=== PATIENT | female | born 2000 | race Caucasian/White ===

== ENCOUNTER → 2021-01-19 10:20 | Outpatient (BNVA) | payer OTHER, SELFPAY | PROVIDERS: Visit Provider Nurse Practitioner Family | DX: J06.9 Acute upper respiratory infection, unspecified (principal); Z20.822 Contact with and (suspected) exposure to COVID-19 | CPT/HCPCS: 87635 ==

== ENCOUNTER → 2021-10-24 13:01 | Outpatient (BNVA) | payer BC, SELFPAY | PROVIDERS: Visit Provider Obstetrics & Gynecology | DX: O20.9 Hemorrhage in early pregnancy, unspecified (principal); Z3A.00 Weeks of gestation of pregnancy not specified | CPT/HCPCS: 84702; 85025; 86850; 86900 ==

== ENCOUNTER 2021-10-26 08:51 | Outpatient (CLI) | payer BC, SELFPAY | END 2021-10-26 08:52 | disposition home or self-care (01) | PROVIDERS: Visit Provider Obstetrics & Gynecology | DX: O20.0 Threatened abortion (principal) | CPT/HCPCS: 84702 ==

== ENCOUNTER 2021-10-27 13:29 | Outpatient (CLI) | payer BC, SELFPAY ==
--- NOTE | 2021-10-27 14:15 | US_ITS ---
WS: [id number] EARLY OBSTETRICAL ULTRASOUND (<14 WEEKS). HISTORY: O20.9 - Hemorrhage in early , unspecified COMPARISON: None available. Transabdominal and transvaginal imaging is submitted. On the transabdominal imaging. There is a very small possible gestational sac within the endometrial canal. Diameter is approximately 4 mm which would correspond to a gestation of 5 weeks and 1 day. No pole or cardiac activity or yolk sac identified. There is mild thickening of the endometrium. In the LEFT adnexa there is a hypoechoic mass adjacent and inseparable from the ovary. The hypoechoic mass measures 2.1 x 2.4 cm. Minimal ring of fire vascularity and a small amount of adjacent fluid. T he RIGHT ovary is normal. No free fluid in the cul-de-sac. US/US OB <=14 wk fetus w transvag IMPRESSION: 1. Possible early intrauterine gestational sac. 4 mm fluid collection in the e ndometrium. This may be an early intrauterine gestation or reactive fluid from change in hormone status. No pole or yolk sac. 2. LEFT adnexal hypoechoic mass measures 2.1 x 2.4 cm. Adjacent and inseparabl e from the LEFT ovary. Small amount of adjacent free fluid. Differential does i nclude corpus luteum of and very early ectopic . Notified Lillie Walls MD at 10/27/2021 2:57 PM. At the request of Dr. Walls I discussed these findings with Ms. Whiting. Dr. Walls will order a repeat transvaginal pelvic ultrasound and repeat blood w ork for Saturday, October 30 for reevaluation. I told Ms. Whiting if she has pelvic pain over the weekend she can return to [facility] emergency room.
== END 2021-10-27 13:30 | disposition home or self-care (01) ==
PROVIDERS: Visit Provider Obstetrics & Gynecology
DX: O20.9 Hemorrhage in early pregnancy, unspecified (principal); E27.9 Disorder of adrenal gland, unspecified
CPT/HCPCS: 76801; 76817

== ENCOUNTER 2021-10-29 19:42 | Inpatient (IN) | payer BC, SELFPAY ==
[2021-10-29] VITALS (7 sets, daily range): BP systolic 116–147; BP diastolic 66–111; PULSE 112–127; RESP 16–18; TEMP 36.4–37; O2SAT 99–100; BMI 21.9; BMI 21.2
--- NOTE | 2021-10-29 20:27 | USR_ITS ---
PROCEDURE INFORMATION: Exam: US First Trimester, Transabdominal and US , Transvaginal Exam date and time: 10/29/2021 8:49 PM Age: 21 years old Clinical indication: Lmp or gestational age (in weeks): Lmp 09/29/2021; Other: High hr / fever; ; Additional info: Eval for preg TECHNIQUE: Imaging protocol: Real-time transabdominal obstetrical ultrasound of the maternal pelvis and a first trimester , less than 14 weeks 0 days, with image documentation. Transvaginal imaging was used for better evaluation of the fetus, adnexa, and/or cervix. COMPARISON: No relevant prior studies available. FINDINGS: Gestation: Single intrauterine suspected gestational sac without pole or heart rate, ultrasonographic age not measured given small size, close clinical correlation, serial beta HCG levels and follow-up ultrasound as clinically indicated advised. A pseudogestational sac may also be a consideration given lack of pole. MATERNAL: Uterus: Unremarkable. Cervix: Unremarkable. Right ovary/adnexa: Unremarkable ovary. Left ovary/adnexa: Left ovary 15 mm cyst, potentially corpus luteal in nature. Intraperitoneal space: No intraperitoneal free fluid. US/US OB <= 14 weeks fetus [id number] IMPRESSION: 1. Single intrauterine suspected gestational sac without pole or heart rate, ultrasonographic age not measured given small size, close clinical correlation, serial beta HCG levels and follow-up ultrasound as clinically indicated advised. A pseudogestational sac may also be a consideration given lack of pole. 2. Left ovary 15 mm cyst, potentially corpus luteal in nature.
--- NOTE | 2021-10-29 20:44 | W.ED.GENADLT ---
HPI - General Adult General: Chief complaint: General Medical Stated complaint: heart racing Time Seen by Provider: 10/29/21 20:27 History of Present Illness: Patient is a 21-year-old female who is currently presenting to the emergency room for concerns of sudden onset of fast heart rate. Patient tells me around 6:45 PM she felt lightheaded and noticed that her heart was racing. Patient reports bilateral shoulder pain at that time. Patient denies any chest pain, pleuritic chest pain, cough, runny nose, sore throat, fever/chills. Patient also denies dyspnea or exertional dyspnea. Patient denies any swelling in the legs. Patient tells me that from Saturday, patient went to the women's clinic and had a beta-hCG of 1999. That point time, patient was told to follow-up tomorrow for reassessment to determine whether patient has ectopic . Patient reports 2 episodes of vaginal spotting however denies any significant vaginal bleeding, abdominal pain, nausea/vomiting, diarrhea/melena/hematochezia. Patient has no new vaginal discharge. The spotting happened on 4 days ago and 7 days ago. Denies any urinary complaints. No family history of VTE or hypercoagulability. Onset:6:45pm Duration:ongoing Location:home Severity:moderate Associated symptoms: Deny chest pain, dyspnea, nausea, rash, palpitations or vomiting Review of Systems Const: Denies: fever(s) or chills Eyes: Denies: change in vision ENMT: Denies: mouth pain Card: Denies: chest pain or palpitations Resp: Denies: dyspnea or non-productive cough GI: Denies: abdominal pain, nausea, vomiting or diarrhea : Denies: dysuria Musc: Denies: extremity pain Skin/Breast: Denies: rash or new lesions Neuro: Denies: weakness in extremities Psych: Reports: other (Normal mood) Joshua/Lymph: Denies: easy bruising PFSH ED PFSH: Medical History (Updated 10/29/21 @ 23:15 by Thad De Los Santos MD) of unknown anatomic location Social History (Updated 10/29/21 @ 20:51 by Thad De Los Santos MD) Smoking and tobacco status: never smoked Alcohol intake: never Substance/Drug Use: never Physical Exam Const: COMMON NORMALS: alert HENMT: COMMON NORMALS: atraumatic HEAD & SCALP: atraumatic MOUTH: moist mucous membranes not abnormal Eye: COMMON NORMALS: EOMs intact bilaterally and conjunctivae normal CONJUNCTIVA: Yes conjunctivae normal Neck/C-Spine: COMMON NORMALS: full ROM and supple Resp: COMMON NORMALS: normal respiratory effort and clear to auscultation bilaterally AUSCULTATION: clear to auscultation bilaterally Cardio: RATE: tachycardic GI: COMMON NORMALS: Soft to palpation and non-tender PALPATION: Yes Soft to palpation OTHER: No focal TTP. NO guarding rebound, guarding, rigidity. No CVA tenderness to percussion. Neg Tucker/Neg McBurney's point tenderness, no suprabupic tenderness to palpation. Extremity: COMMON NORMALS: full ROM OTHER: no LE swelling, no gena's sign Neuro: SENSORIUM/ORIENTATION: Yes alert MOTOR EXAM: No Abnormal motor strength present and Other motor observations present (no focal motor deficits) Psych: COMMON NORMALS: speech normal SPEECH: Yes normal speech MOOD & AFFECT: Yes euthymic mood Course Vital Signs: Vital signs: Vital Signs Temperature 98.2 F 10/30/21 09:30 Pulse Rate 98 10/30/21 11:00 Respiratory Rate 18 10/30/21 08:00 Blood Pressure 100/59 10/30/21 10:02 Pulse Oximetry 97 10/30/21 11:00 MDM - General Adult Medical Decision Making 21-year-old female currently x1 presents emergency room with new onset of fast heart since 6:45 PM. Pain on physical exam, patient is hemodynamically stable noted to be mildly tachycardic to the 110s to 120s. Patient does not appear to be dry on exam. No focal abdominal tenderness to palpation. Appears to be stable. Beta-hCG noted to be 8K. US showed gestational sac without definitive confirmation of IUP. No signs of ectopic seen in the left adnexa. There appears to be mild pelvic fluid noted by the customer account technician. I have discussed case emergently with Dr. White given concerns for possible ectopic . It is unclear why there is no visualization of IUP or ectopic given beta of 8000. Dr. White is aware of patient recommend serial H&H and admission to OB unit for close observation for possible ectopic +/- rupture Disposition: transfer to OB floor for observation Lab Data : 10/30/21 06:34 10/29/21 20:44 Radiology Impressions Ultrasound 10/29/21 20:27 IMPRESSION: 1. Single intrauterine suspected gestational sac without pole or heart rate, ultrasonographic age not measured given small size, close clinical correlation, serial beta HCG levels and follow-up ultrasound as clinically indicated advised. A pseudogestational sac may also be a consideration given lack of pole. 2. Left ovary 15 mm cyst, potentially corpus luteal in nature. Obstetrics Ultrasound 10/30/21 08:05 IMPRESSION: 1. No significant change in the fluid collection within the endometrial canal which could be an early gestational sac. Measurements would correspond to a gestation of 5 weeks and 4 days. There is no cardiac activity or pole identified. 2. Again noted is the thick wall mass with central fluid and increased peripheral vascularity in the LEFT adnexa. This is probably a corpus luteal cyst of or could be as ectopic adjacent and inseparable from the ovary. For confirmation continue with serial beta hCG evaluation and possible ultrasound may be necessary. 3. Small amount of simple free fluid in the cul-de-sac. Laboratory Results WBC 12.7 10^3/uL (4.0-10.0) H 10/29/21 20:44 RBC 4.46 10^6/uL (4.1-5.3) 10/29/21 20:44 Hgb 13.9 g/dL (11.5-15.3) 10/29/21 20:44 Hct 40.4 % (37.0-47.0) 10/29/21 20:44 MCV 90.6 fl (81-99) 10/29/21 20:44 MCH 31.2 pg (28.0-34.0) 10/29/21 20:44 MCHC 34.4 g/dL (30.0-36.0) 10/29/21 20:44 RDW 11.1 % (12.1-15.1) L 10/29/21 20:44 Plt Count 239 10^3/cmm (130-400) 10/29/21 20:44 MPV 10.8 fL (7.4-10.4) H 10/29/21 20:44 Neut % (Auto) 82.2 % 10/29/21 20:44 Lymph % (Auto) 13.1 % 10/29/21 20:44 Stewart % (Auto) 3.6 % 10/29/21 20:44 Eos % (Auto) 0.6 % 10/29/21 20:44 Baso % (Auto) 0.3 % 10/29/21 20:44 Neut # (Auto) 10.46 10^3/uL (1.8-7.7) H 10/29/21 20:44 Lymph # (Auto) 1.7 10^3/uL (0.8-4.8) 10/29/21 20:44 Stewart # (Auto) 0.5 10^3/uL (0.2-0.9) 10/29/21 20:44 Eos # (Auto) 0.1 10^3/uL (0.0-0.8) 10/29/21 20:44 Baso # (Auto) 0.0 10^3/uL (0.0-0.1) 10/29/21 20:44 Nucleated RBC % (auto) 0 % 10/29/21 20:44 Nucleated RBCs # 0.0 /100WBC 10/29/21 20:44 Sodium 137 mmol/L (136-145) 10/29/21 20:44 Potassium 3.3 mmol/L (3.5-5.1) L 10/29/21 20:44 Chloride 103 mmol/L (98-107) 10/29/21 20:44 Carbon Dioxide 20 mmol/L (22-29) L 10/29/21 20:44 Anion Gap 17.3 (5-19) 10/29/21 20:44 BUN 6 mg/dL (6-20) 10/29/21 20:44 Creatinine 0.7 mg/dL (0.5-0.9) 10/29/21 20:44 GFR Calculation 104.6 mL/min (90-130) 10/29/21 20:44 Glucose 117 mg/dL (65-115) H 10/29/21 20:44 Calculated Osmolality 283 mOsm/kg (285-295) L 10/29/21 20:44 Calcium 9.6 mg/dL (8.5-10.5) 10/29/21 20:44 Magnesium 1.7 mg/dL (1.7-2.3) 10/29/21 20:44 Total Bilirubin 0.3 mg/dL (0.15-1.2) 10/29/21 20:44 AST 13 U/L (0-32) 10/29/21 20:44 ALT 6 U/L (0-33) 10/29/21 20:44 Alkaline Phosphatase 50 IU/L (35-105) 10/29/21 20:44 Total Protein 6.7 g/dL (6.6-8.7) 10/29/21 20:44 Albumin 4.7 g/dL (3.5-5.2) 10/29/21 20:44 Globulin 2.0 g/dL (1.3-4.6) 10/29/21 20:44 Lipase 14 U/L (13-60) 10/29/21 20:44 TSH 2.02 uIU/mL (0.27-4.20) 10/29/21 20:44 Free T4 1.60 ng/dL (0.82-1.77) 10/29/21 20:44 Ser , Semi-Qnt 8807.00 mIU/mL 10/29/21 20:44 Blood Type O Positive 10/29/21 20:51 Rho(D) Type Positive 10/29/21 20:51 Imaging Data Other Imaging: Radiologist's impression: [place] [address] Ultrasound Report Signed Patient: Mora Whiting Unit #: [id number] : 2000 Age/Sex: 21 / F ADM Date: 10/29/21 Loc: ER Room/Bed: Attending Dr: Ordering Provider/Ordering MD: Thad De Los Santos MD Date of Service: 10/29/21 Procedure(s): US OB <= 14 weeks fetus [id number] Accession Number(s): [id number] Report Number: [id number] PROCEDURE INFORMATION: Exam: US First Trimester, Transabdominal and US , Transvaginal Exam date and time: 10/29/2021 8:49 PM Age: 21 years old Clinical indication: Lmp or gestational age (in weeks): Lmp 09/29/2021; Other: High hr / fever; ; Additional info: Eval for preg TECHNIQUE: Imaging protocol: Real-time transabdominal obstetrical ultrasound of the maternal pelvis and a first trimester , less than 14 weeks 0 days, with image documentation. Transvaginal imaging was used for better evaluation of the fetus, adnexa, and/or cervix. COMPARISON: No relevant prior studies available. FINDINGS: Gestation: Single intrauterine suspected gestational sac without pole or heart rate, ultrasonographic age not measured given small size, close clinical correlation, serial beta HCG levels and follow-up ultrasound as clinically indicated advised. A pseudogestational sac may also be a consideration given lack of pole. MATERNAL: Uterus: Unremarkable. Cervix: Unremarkable. Right ovary/adnexa: Unremarkable ovary. Left ovary/adnexa: Left ovary 15 mm cyst, potentially corpus luteal in nature. Intraperitoneal space: No intraperitoneal free fluid. US/US OB <= 14 weeks fetus [id number] IMPRESSION: 1. Single intrauterine suspected gestational sac without pole or heart rate, ultrasonographic age not measured given small size, close clinical correlation, serial beta HCG levels and follow-up ultrasound as clinically indicated advised. A pseudogestational sac may also be a consideration given lack of pole. 2. Left ovary 15 mm cyst, potentially corpus luteal in nature. ? Dictated By: Gerson Sampson MD Signed By: Gerson Sampson MD Signed Date/Time: 10/29/212211 DD/ 48 Discharge Plan Discharge Patient Disposition: Admitted As Inpatient Admit Provider: Fortuanto White Clinical Impression: Tachycardia, of unknown anatomic location Condition: Stable Coding Level of Care Code ED Investment Recovery Technician for Chg Fwd Exam Comprehensive
[2021-10-29 20:49] LABS: Basophils % 0.3 %; Eosinophils # 0.1 10^3/uL (0.0-0.8); Eosinophils % 0.6 %; Hematocrit 40.4 % (37.0-47.0); Hemoglobin 13.9 g/dL (11.5-15.3); Lymphocytes # 1.7 10^3/uL (0.8-4.8); Lymphocytes % 13.1 %; Mean Corpuscular HGB Conc 34.4 g/dL (30.0-36.0); Mean Corpuscular Hemoglobin 31.2 pg (28.0-34.0); Mean Corpuscular Volume 90.6 fl (81-99); Mean Platelet Volume 10.8 fL (7.4-10.4); Monocytes # 0.5 10^3/uL (0.2-0.9); Monocytes % 3.6 %; Neutrophils # 10.46 10^3/uL (1.8-7.7); Neutrophils % 82.2 %; Nucleated Red Blood Cells % 0 %; Platelet Count 239 10^3/cmm (130-400); Red Blood Count 4.46 10^6/uL (4.1-5.3); Red Cell Distribution Width 11.1 % (12.1-15.1); White Blood Count 12.7 10^3/uL (4.0-10.0)
[2021-10-29 21:17] LABS: Thyroid Stimulating Hormone 2.02 uIU/mL (0.27-4.20)
[2021-10-29 21:18] LABS: Alanine Aminotransferase 6 U/L (0-33); Albumin Level 4.7 g/dL (3.5-5.2); Alkaline Phosphatase 50 IU/L (35-105); Anion Gap 17.3 (5-19); Aspartate Amino Transferase 13 U/L (0-32); Blood Urea Nitrogen 6 mg/dL (6-20); Calcium 9.6 mg/dL (8.5-10.5); Carbon Dioxide 20 mmol/L (22-29); Chloride 103 mmol/L (98-107); Creatinine Clr Calc Pharmacy 103.1506; Glomerular Filtration Rate 104.6 mL/min (90-130); Glucose 117 mg/dL (65-115); Lipase 14 U/L (13-60); Magnesium 1.7 mg/dL (1.7-2.3); Osmolality Calculated 283 mOsm/kg (285-295); Potassium 3.3 mmol/L (3.5-5.1); Sodium 137 mmol/L (136-145); Total Bilirubin 0.3 mg/dL (0.15-1.2); Total Protein 6.7 g/dL (6.6-8.7)
[2021-10-29] MEDS: sodium chloride 0.9% 1,000 ML 999 ML IV ×2 (21:18→21:29)
[2021-10-29 22:55] LABS: Basophils % 0.2 %; Eosinophils % 0.1 %; Lymphocytes # 0.9 10^3/uL (0.8-4.8); Mean Corpuscular HGB Conc 34.2 g/dL (30.0-36.0); Mean Corpuscular Hemoglobin 30.7 pg (28.0-34.0); Mean Corpuscular Volume 89.8 fl (81-99); Mean Platelet Volume 10.8 fL (7.4-10.4); Monocytes # 0.2 10^3/uL (0.2-0.9); Monocytes % 1.7 %; Neutrophils # 11.51 10^3/uL (1.8-7.7); Neutrophils % 90.8 %; Nucleated Red Blood Cells % 0 %; Platelet Count 237 10^3/cmm (130-400); Red Blood Count 4.23 10^6/uL (4.1-5.3); Red Cell Distribution Width 11.2 % (12.1-15.1); White Blood Count 12.7 10^3/uL (4.0-10.0)
[2021-10-29 23:08] LABS: INR 1.05 (0.8-1.2)
[2021-10-30] VITALS (190 sets, daily range): BP systolic 94–125; BP diastolic 49–68; PULSE 63–211; RESP 18; TEMP 36–36.8; O2SAT 84–100
[2021-10-30] MEDS: dextrose 5%-lactated ringers 1,000 ML 125 ML IV (00:38)
[2021-10-30 02:22] LABS: Hematocrit 35.5 % (37.0-47.0)
[2021-10-30 06:48] LABS: Hematocrit 35.5 % (37.0-47.0); Hemoglobin 12.2 g/dL (11.5-15.3)
--- NOTE | 2021-10-30 08:05 | US_ITS ---
WS: [id number] EARLY OBSTETRICAL ULTRASOUND (<14 WEEKS). HISTORY: Follow-up status. Possible ectopic. COMPARISON: 10/29/2021 and 10/27/2021 Transvaginal imaging is submitted. There is a small intrauterine fluid collection which does not cont ain a pole or crown-rump length. Decidual reaction suggests this may be gestational sac. Measur ements correspond to a gestational age of 5 weeks and 4 days. Again noted is thick wall cystic mass in the LEFT adnexa inseparable from the ovary. This thick wall mass measures 2.7 x 1.7 cm. The cystic component measures 1.3 x 1.1 cm and extends over a length of 2 .0 cm. There is increased peripheral vascularity. This is similar in appearance to the prior examinat ion of 10/27/2021. No pole or cardiac activity identified. There is a small amount of free fluid in the pelvis. RIGHT ovary not identified. No RIGHT adnexal mass. US/US OB <=14 wk fetus w transvag IMPRESSION: 1. No significant change in the fluid collection within the endometrial canal which could be an early gestational sac. Measurements would correspond to a ges tation of 5 weeks and 4 days. There is no cardiac activity or pole identi fied. 2. Again noted is the thick wall mass with central fluid and increased periphe ral vascularity in the LEFT adnexa. This is probably a corpus luteal cyst of pr egnancy or could be as ectopic adjacent and inseparable from the ovar y. For confirmation continue with serial beta hCG evaluation and possible ultra sound may be necessary. 3. Small amount of simple free fluid in the cul-de-sac.
--- NOTE | 2021-10-30 09:19 | PC.NURSE ---
US at bedside
[2021-10-30 12:05] LABS: Hematocrit 37.8 % (37.0-47.0); Hemoglobin 13.1 g/dL (11.5-15.3); Mean Corpuscular HGB Conc 34.7 g/dL (30.0-36.0); Mean Corpuscular Hemoglobin 31.6 pg (28.0-34.0); Mean Corpuscular Volume 91.3 fl (81-99); Mean Platelet Volume 10.8 fL (7.4-10.4); Platelet Count 230 10^3/cmm (130-400); Red Blood Count 4.14 10^6/uL (4.1-5.3); Red Cell Distribution Width 11.4 % (12.1-15.1); White Blood Count 7.9 10^3/uL (4.0-10.0)
[2021-10-30 12:25] LABS: HCG, Serum Qual Positive (Negative)
--- NOTE | 2021-10-30 13:20 | P.SS_ITS ---
Short Stay Summary Providers Date of Admit/Discharge: 10/30/21 Attending Provider: Fortunato White MD Chief Complaint: heart racing HPI History of Present Illness Mora Whiting is a 21 year old female with a last menstrual period of 29 September 2021, positive test making her with an estimated gestational age of 4 weeks 3 days today. She referred that she had previously come to the women health care clinic, or a quantitative hCG was ordered and ultrasound was performed. She was given precautions to return to the clinic if any symptoms of pelvic pain or bleeding occurred. She had not yet seen a provider at the clinic. She started with heart palpitations and she was concerned and came to the emergency room. Review of Systems Const: Denies: fever(s) or chills Eyes: Denies: change in vision ENMT: Denies: mouth pain Card: Denies: chest pain or palpitations Resp: Denies: dyspnea or non-productive cough GI: Denies: abdominal pain, nausea, vomiting or diarrhea : Reports: vaginal bleeding (light spotting); Denies: dysuria, urinary frequency, urinary urgency, urinary incontinence, hematuria, genital pruritis, vaginal dryness, vaginal odor, pelvic pain or dyspareunia Musc: Denies: extremity pain Skin/Breast: Denies: rash or new lesions Neuro: Denies: weakness in extremities Psych: Reports: other (Normal mood) Joshua/Lymph: Denies: easy bruising Home Meds/Allergies Home Medications and Allergies Allergies Allergy/AdvReac Type Severity Reaction Status Date / Time No Known Allergies Allergy Verified 10/30/21 00:52 PFSH Acute PFSH: Medical History of unknown anatomic location Social History Smoking and tobacco status: never smoked Alcohol intake: never Substance/Drug Use: never Female Reproductive History: Date of last menstrual period: 09/29/21 : 1 Vitals/I&O/Wt Last Vital Signs Temp 98.2 F 10/30/21 09:30 Pulse 85 10/30/21 13:15 Resp 18 10/30/21 08:00 BP 100/59 10/30/21 10:02 Pulse Ox 98 10/30/21 13:15 Weight last 48 hrs Weight 54.431 kg Weight 54.431 kg Physical Exam Const: COMMON NORMALS: no acute distress, average body habitus and patient oriented x3 GENERAL APPEARANCE: cooperative and well [facility] HENMT: COMMON NORMALS: normocephalic and atraumatic HEAD & SCALP: normocephalic and atraumatic Neck/C-Spine: COMMON NORMALS: full ROM Chest: COMMONS NORMALS: normal inspection of the chest Resp: COMMON NORMALS: normal respiratory effort Cardio: COMMON NORMALS: regular rate and regular rhythm RATE: regular rate RHYTHM: regular rhythm GI: COMMON NORMALS: Soft to palpation; negative for No hepatosplenomegaly present INSPECTION: Yes normal to inspection AUSCULTATION: Yes normoactive bowel sounds PALPATION: Yes Soft to palpation, No Firmness to palpation present (GI), No Tenderness to palpation present (GI), No Guarding due to palpation present (GI), No Rigid due to palpation and No No hepatosplenomegaly present Neuro: COMMON NORMALS: patient oriented x3 Psych: APPEARANCE: Yes well [facility] Hospital Course Hospital Course Mrs. Whiting 21-year-old female visited the emergency room due to heart palpitations. She is currently with a quantitative hCG of 8800, ultrasound only shows a gestational sac with no pole and a left corpus luteum cyst. She is asymptomatic with no pelvic pain no significant vaginal bleeding, admitted for observation and serial hCG and ultrasound. Hemoglobin and hematocrit stable with no significant decrease. of unknown location pole is identified. Patient was instructed to follow-up at the clinic Saturday. SSS Data Data Completed and Pending: Completed Studies During Hospitalization Category Date Time Status US OB <= 14 weeks fetus [id number] Urgen t Ultrasound 10/29/21 20:27 Completed US OB less than 1 4 week fetus w tra nsvag [US OB <=14 wk Ultrasound 10/30/21 08:05 Completed fetus w transvag] Routine Pending at discharge Category Date Time Status HCG Quantitative Stat Lab 10/30/21 12:48 Received Addt'l Data from Hospital Stay: Laboratory Tests 10/29/21 10/29/21 10/30/21 20:44 22:50 02:14 WBC 12.7 H Hgb 13.9 13.0 12.0 Hct 40.4 38.0 35.5 L 10/30/21 10/30/21 06:34 11:40 WBC 7.9 Hgb 12.2 13.1 Hct 35.5 L 37.8 Laboratory Tests 10/29/21 10/30/21 10/30/21 20:44 11:40 11:40 WBC 7.9 Ser , Bakari i-Qnt 8807.00 62093.00 Diagnoses at Discharge Discharge Diagnosis (1) of unknown anatomic location: Details from hospital stay: Mrs. Whiting 21-year-old female with a last menstrual period of September 29, 2021 with an EGA of approximately 4 weeks 3 days. Came to the emergency room referring palpitation. Early ultrasounds: Not identify pole or cardiac activity. Transvaginal ultrasound performed this morning found gestational sac but could not identify pole. Patient is asymptomatic with referring just light brownish spotting. Transabdominal ultrasound performed in the emergency room also did not identify pole of any significant amount of fluid in the pelvic cavity or abdominal cavity. Mrs. Whiting was counseled regarding early in and recommendation of serial ultrasounds and quantitative hCGs. She was advised to follow-up in the clinic this Saturday, to stay on pelvic rest and no strenuous physical activities. She was also advised if she started with any pelvic pain or vaginal bleeding to immediately return to the emergency room. Status: Acute Discharge Plan Discharge Patient Disposition: Home Condition: Stable Prescriptions: New acetaminophen 325 mg capsule 325 mg PO Q4H PRN (Reason: fever or pain) Qty: 60 0RF PNV no.154-iron fumarate-folic 27 mg iron- 1 mg tablet 1 tab PO DAILY 90 Days Qty: 90 3RF Discharge Orders: Discharge Order (Routine); Ordered 10/30/21 Ordered By: Fortunato White Discharge Diet: Usual diet Discharge Activity: Limit activity as instructed Patient Instructions: Opioid Safety Activity Restrictions/Additional Instructions: Please go to [facility]'s 11/01/21 @ 7678 for repeat US and blood work per Dr White's order Attestations Medical Necessity Statement*: In my professional opinion per admitting diagnosis Time Spent in Patient Care*: greater than 30 min Quality Metrics Clinical Quality Measures: [ No reported AMI, CVA or VTE this stay ] Coding Level of Care Code Acute Environmental Health Safety Engineer for Chg Fwd Diagnoses of unknown anatomic location O36.80X0
== END 2021-10-30 15:05 | disposition home or self-care (01) | DRG 833 ==
LOC: ER 22:53 → OBGYN 23:07
PROVIDERS: Admitting Provider Obstetrics & Gynecology; Emergency Provider Emergency Medicine; Visit Provider Obstetrics & Gynecology
DX: O26.891 Other specified pregnancy related conditions, first trimester (principal); O36.80X0 Pregnancy with inconclusive fetal viability, not applicable or unspecified; Z3A.01 Less than 8 weeks gestation of pregnancy; M25.512 Pain in left shoulder; M25.511 Pain in right shoulder; R00.2 Palpitations
CPT/HCPCS: 36415; 76801; 76817; 80053; 83690; 83735; 84439; 84443; 84702; 84703; 85014; 85018; 85025; 85027; 85610; 85730; 86900; 96360; 96361; 99285; J7030

== ENCOUNTER → 2021-11-01 08:36 | Outpatient (BNVA) | payer BC, SELFPAY | PROVIDERS: Visit Provider Obstetrics & Gynecology | DX: O36.80X0 Pregnancy with inconclusive fetal viability, not applicable or unspecified (principal); Z3A.01 Less than 8 weeks gestation of pregnancy | CPT/HCPCS: 76817; 84702 ==

== ENCOUNTER 2021-11-09 17:05 | Emergency (ER) | payer BC, SELFPAY ==
[2021-11-09] VITALS (7 sets, daily range): BP systolic 119–133; BP diastolic 64–78; PULSE 105–136; RESP 16–24; TEMP 36.8; O2SAT 89–100
--- NOTE | 2021-11-09 17:25 | ECG_ITS ---
[facility] Test Date: 2021-11-09 Pat Name: Mora Whiting Department: Room: Gender: Female Bulk Clerk: : 2000 Requested By: Wallace Treviño Order Number: [id number] S[place] MD: Juancho Kwon M.D. Measurements Intervals [place] Rate: 107 P: 69 NE: 127 QRS: 70 QRSD: 90 T: 29 QT: 328 QTc: 438 Interpretive Statements SINUS TACHYCARDIA NONSPECIFIC T-WAVE ABNORMALITY No previous ECG available for comparison Electronically Signed On 11-09-2021 22:53:07 CDT by Juancho Kwon M.D. [email or web address]
--- NOTE | 2021-11-09 17:26 | ED_ITS ---
HPI - General Adult General: Chief complaint: General Medical Stated complaint: HEART PALPITATIONS/ FEELING FLUSHED Time Seen by Provider: 11/09/21 17:24 History of Present Illness: 21-year-old female comes in today with complaints of heart palpitations. Patient notes that her pulse rates been running high. Patient reported that she became concerned when she noticed that it was up to 170 and called EMS Patient is about 6 weeks . Patient appears well. Patient appears no acute distress. Patient reports no chest pain. Associated symptoms: Reports nausea, palpitations and vomiting (Morning sickness); Deny dyspnea or rash Review of Systems General: Reports: 10 or more systems reviewed and unremarkable except in HPI and below Const: Denies: fever(s) Card: Reports: palpitations Resp: Denies: dyspnea GI: Reports: nausea and vomiting (Morning sickness) Musc: Denies: extremity swelling Skin/Breast: Denies: rash Psych: Denies: anxiety Physical Exam Const: COMMON NORMALS: no acute distress HENMT: HEAD & SCALP: normal to inspection Neck/C-Spine: GENERAL: Yes normal visual inspection Resp: COMMON NORMALS: normal respiratory effort and clear to auscultation bilaterally AUSCULTATION: clear to auscultation bilaterally Cardio: COMMON NORMALS: regular rhythm and S1 normal heart sound present PALPATION: normal PMI RATE: tachycardic RHYTHM: regular rhythm HEART SOUNDS: S1 normal heart sound present GI: COMMON NORMALS: Soft to palpation and non-tender PALPATION: Yes Soft to palpation Back/Pelvis: COMMON NORMALS: thoracic and lumbar spine normal to inspection Extremity: COMMON NORMALS: normal to inspection, full ROM, no clubbing, cyanosis or edema, no calf tenderness and no pedal edema Neuro: SHARON COMA SCALE: document GCS findings Sharon coma scale eye opening: Spontaneous [place] coma scale verbal response: Orientated Sharon coma scale motor response: Obey commands [place] coma scale total score: 15 Psych: COMMON NORMALS: cooperative and normal affect Skin: COMMON NORMALS: turgor normal GENERAL SKIN EXAM: turgor normal Course ED course: 1754, reviewed patient with Dr. Fortune, ER attending, he agreed with plan at this time IV fluids and evaluation with labs. Suggest patient may have some mild sinus tachycardia due to dehydration from morning sickness and may have occasional runs of PSVT. Suggest ruling out infection and other abnormalities. 2100, reviewed patient of Dr. Walls whom suggested that we go ahead and start patient on a low-dose of metoprolol, and set her up for Holter monitor and cardiology referral. Reviewed this with patient who agreed to plan. Vital Signs: Vital signs: Vital Signs Temperature 98.3 F 11/09/21 17:24 Pulse Rate 105 H 11/09/21 20:24 Respiratory Rate 18 11/09/21 20:24 Blood Pressure 133/72 11/09/21 20:24 Pulse Oximetry 99 11/09/21 20:24 MDM - General Adult Medical Decision Making Patient comes in today with complaints of palpitations. On exam patient does have a tachycardia ranging between the 110s in the 130s. It was reported patient did have a episode where it jumped up into the 170s to 180s. Patient seems slightly anxious. Patient is in her early at around 6 to 7 weeks. Patient denies any vaginal bleeding or other abnormal vaginal discharge. On exam respirations are even lungs are clear to auscultation. Heart rates regular with tachycardic rhythm in the 110s. Differential diagnosis includes but not limited to PSVT, related tachycardia, anxiety. Laboratory values were unremarkable. Urinalysis was normal. No signs of significant infec tion was noted. Patient was infused with 1500 mL of IV fluids, and given 0.5 of lorazepam with no significant change in pulse rate. I reviewed the patient with Dr. Fortune who recommended I go ahead and discuss it with DIALYSIS REGISTERED NURSE. DIALYSIS REGISTERED NURSE suggested metoprolol tartrate initiation and follow-up with Holter monitor and cardiology. Patient was agreeable to plan and reports that many of her family members has problems with tachycardia and have to be on metoprolol also. Lab Data : 11/09/21 19:15 11/09/21 19:15 Laboratory Results WBC 10.9 10^3/uL (4.0-10.0) H 11/09/21 19:15 RBC 4.31 10^6/uL (4.1-5.3) 11/09/21 19:15 Hgb 13.6 g/dL (11.5-15.3) 11/09/21 19:15 Hct 39.4 % (37.0-47.0) 11/09/21 19:15 MCV 91.4 fl (81-99) 11/09/21 19:15 MCH 31.6 pg (28.0-34.0) 11/09/21 19:15 MCHC 34.5 g/dL (30.0-36.0) 11/09/21 19:15 RDW 11.2 % (12.1-15.1) L 11/09/21 19:15 Plt Count 261 10^3/cmm (130-400) 11/09/21 19:15 MPV 10.8 fL (7.4-10.4) H 11/09/21 19:15 Neut % (Auto) 88.3 % 11/09/21 19:15 Lymph % (Auto) 8.3 % 11/09/21 19:15 [place] % (Auto) 2.7 % 11/09/21 19:15 Eos % (Auto) 0.1 % 11/09/21 19:15 Baso % (Auto) 0.4 % 11/09/21 19:15 Neut # (Auto) 9.63 10^3/uL (1.8-7.7) H 11/09/21 19:15 Lymph # (Auto) 0.9 10^3/uL (0.8-4.8) 11/09/21 19:15 [place] # (Auto) 0.3 10^3/uL (0.2-0.9) 11/09/21 19:15 Eos # (Auto) 0.0 10^3/uL (0.0-0.8) 11/09/21 19:15 Baso # (Auto) 0.0 10^3/uL (0.0-0.1) 11/09/21 19:15 Nucleated RBC % (auto) 0 % 11/09/21 19:15 Nucleated RBCs # 0.0 /100WBC 11/09/21 19:15 Sodium 139 mmol/L (136-145) 11/09/21 19:15 Potassium 3.9 mmol/L (3.5-5.1) 11/09/21 19:15 Chloride 107 mmol/L (98-107) 11/09/21 19:15 Carbon Dioxide 20 mmol/L (22-29) L 11/09/21 19:15 Anion Gap 15.9 (5-19) 11/09/21 19:15 BUN 4 mg/dL (6-20) L 11/09/21 19:15 Creatinine 0.4 mg/dL (0.5-0.9) L 11/09/21 19:15 GFR Calculation 199.6 mL/min (90-130) H 11/09/21 19:15 Glucose 100 mg/dL (65-115) 11/09/21 19:15 Calculated Osmolality 285 mOsm/kg (285-295) 11/09/21 19:15 Calcium 8.6 mg/dL (8.5-10.5) 11/09/21 19:15 Total Bilirubin 0.2 mg/dL (0.15-1.2) 11/09/21 19:15 AST 12 U/L (0-32) 11/09/21 19:15 ALT < 5 U/L (0-33) 11/09/21 19:15 Alkaline Phosphatase 47 IU/L (35-105) 11/09/21 19:15 Troponin T Baseline 6 ng/L (0-10) 11/09/21 19:15 Total Protein 6.5 g/dL (6.6-8.7) L 11/09/21 19:15 Albumin 4.5 g/dL (3.5-5.2) 11/09/21 19:15 Globulin 2.0 g/dL (1.3-4.6) 11/09/21 19:15 TSH 0.52 uIU/mL (0.27-4.20) 11/09/21 19:15 HCG, Qual Positive (Negative) H 11/09/21 19:15 Urine Color Yellow (Yellow) 11/09/21 17:46 Urine Appearance Clear (CLEAR) 11/09/21 17:46 Urine pH 7 (5-7) 11/09/21 17:46 Ur Specific [place] 1.005 (1.005-1.030) 11/09/21 17:46 Urine Protein Neg (Negative) 11/09/21 17:46 Urine Glucose (UA) Norm (Normal) 11/09/21 17:46 Urine Ketones Negative (Negative) 11/09/21 17:46 Urine Blood Neg (Negative) 11/09/21 17:46 Urine Nitrate Negative (Negative) 11/09/21 17:46 Urine Bilirubin Neg (Negative) 11/09/21 17:46 Urine Urobilinogen Norm mg/dL (Negative) 11/09/21 17:46 Ur Leukocyte Esterase Negative (Negative) 11/09/21 17:46 EKG Data EKG 1: EKG interpretation date: 11/09/21 EKG interpretation time: 17:45 Interpretation: EKG shows a sinus tachycardia with a regular rate at 107. No ST elevation or ectopy is noted. No delta wave is noted to suggest [facility]. No prior exam was available for comparison. EKG 2: EKG interpretation date: 11/09/21 EKG interpretation time: 18:56 Interpretation: Sinus tachycardia with a regular rate at 119 bpm. No significant changes from prior exam [address] elevation or ectopy is noted Discharge Plan Discharge Patient Disposition: Home Clinical Impression: Tachycardia Qualifiers: Weeks of gestation: less than 8 weeks Qualified Code(s): Z3A.01 - Less than 8 weeks gestation of Condition: Stable Prescriptions: New metoprolol tartrate 25 mg tablet 12.5 mg PO BID Qty: 30 0RF lorazepam 0.5 mg tablet 0.25 mg PO BID PRN (Reason: anxiety) Qty: 10 0RF Discharge Orders: Discharge ED (Routine); Ordered 11/09/21 Ordered By: Wallace Gerardo Discharge Diet: Usual diet Discharge Activity: Increase activity as tolerated Patient Instructions: Tachycardia (ED) Activity Restrictions/Additional Instructions: Drink plenty of water. Avoid caffeinated beverages. Use medications as directed. Contact Dr. Simpson's office in the morning for follow-up appointment. Case management will contact you regarding cardiology and a time to come in for Holter monitor placement. Return to ER for new concerns. Coding Level of Care Code ED Outdoor Emergency Care Technician for Chg Fwd Exam Comprehensive
[2021-11-09 17:57] LABS: Add Urine Microscopic? NO; Charge for UA Resulting for Rev
[2021-11-09] MEDS: sodium chloride 0.9% 500 ML 999 ML IV (18:01)
[2021-11-09] MEDS: LORazepam 2 mg/mL INJ 1 mL 0.5 MG IVP (18:01)
[2021-11-09 18:08] LABS: Bilirubin Urine Neg (Negative); Blood Urine Neg (Negative); Glucose Urine UA Norm (Normal); Ketones Urine Negative (Negative); Nitrate Urine Negative (Negative); Protein Urine Neg (Negative); Specific Gravity, Urine 1.005 (1.005-1.030); Urine Appearance Clear (CLEAR); Urine Color Yellow (Yellow); pH Urine 7 (5-7)
[2021-11-09 18:09] LABS: Leukocyte Esterase Urine Negative (Negative); Urobilinogen Urine Norm (Negative)
[2021-11-09] MEDS: ondansetron 2 mg/ML SDV 2 mL 4 MG IVP (19:22)
[2021-11-09 19:23] LABS: Basophils % 0.4 %; Eosinophils % 0.1 %; Hematocrit 39.4 % (37.0-47.0); Hemoglobin 13.6 g/dL (11.5-15.3); Lymphocytes # 0.9 10^3/uL (0.8-4.8); Lymphocytes % 8.3 %; Mean Corpuscular HGB Conc 34.5 g/dL (30.0-36.0); Mean Corpuscular Hemoglobin 31.6 pg (28.0-34.0); Mean Corpuscular Volume 91.4 fl (81-99); Mean Platelet Volume 10.8 fL (7.4-10.4); Monocytes # 0.3 10^3/uL (0.2-0.9); Monocytes % 2.7 %; Neutrophils # 9.63 10^3/uL (1.8-7.7); Neutrophils % 88.3 %; Nucleated Red Blood Cells % 0 %; Platelet Count 261 10^3/cmm (130-400); Red Blood Count 4.31 10^6/uL (4.1-5.3); Red Cell Distribution Width 11.2 % (12.1-15.1); White Blood Count 10.9 10^3/uL (4.0-10.0)
--- NOTE | 2021-11-09 19:25 | ECG_ITS ---
[facility] Test Date: 2021-11-09 Pat Name: Mora Whiting Department: Room: Gender: Female Senior Trainer: : 2000 Requested By: Wallace Treviño Order Number: [id number] Sienna MD: Juancho Kwon M.D. Measurements Intervals [place] Rate: 119 P: 61 HI: 112 QRS: 74 QRSD: 75 T: 25 QT: 340 QTc: 480 Interpretive Statements SINUS TACHYCARDIA WITH SHORT HI INTERVAL NONSPECIFIC T-WAVE ABNORMALITY Compared to ECG 11/09/2021 17:38:21 Short HI interval now present T-wave abnormality still present Electronically Signed On 11-09-2021 22:53:36 CDT by Juancho Kwon M.D. [id number]
[2021-11-09 19:31] LABS: HCG, Serum Qual Positive (Negative)
[2021-11-09 19:42] LABS: Troponin(5th) Baseline 6 ng/L (0-10)
[2021-11-09 19:51] LABS: Alanine Aminotransferase < 5 U/L (0-33); Albumin Level 4.5 g/dL (3.5-5.2); Alkaline Phosphatase 47 IU/L (35-105); Anion Gap 15.9 (5-19); Aspartate Amino Transferase 12 U/L (0-32); Blood Urea Nitrogen 4 mg/dL (6-20); Calcium 8.6 mg/dL (8.5-10.5); Carbon Dioxide 20 mmol/L (22-29); Chloride 107 mmol/L (98-107); Glomerular Filtration Rate 199.6 mL/min (90-130); Glucose 100 mg/dL (65-115); Osmolality Calculated 285 mOsm/kg (285-295); Potassium 3.9 mmol/L (3.5-5.1); Sodium 139 mmol/L (136-145); Thyroid Stimulating Hormone 0.52 uIU/mL (0.27-4.20); Total Bilirubin 0.2 mg/dL (0.15-1.2); Total Protein 6.5 g/dL (6.6-8.7)
[2021-11-09] MEDS: metoprolol tartrate 25 mg Tablet 12.5 MG PO (20:16)
--- NOTE | 2021-11-14 09:00 | DCPLANNER ---
Addendum entered by Marilu Lugo 12/10/21 06:43: Patient had a follow up appointment scheduled for 12.04.[address] Kwon at [facility] - patient did attend appointment. Addendum entered by Marilu Lugo 11/18/21 08:13: Patient had a follow up appointment scheduled for 11.16.21 for an event monitor - patient did attend appointment. Patient has a follow up appointment scheduled for Saturday, December 04, 2021 at 11:[address] Kwon. Clinic will call patient with appointment information. Original Note: assistant sales manager had message to schedule a follow up appointment for patient with [facility]. assistant sales manager sent patients information to the front office staff at [facility]. Patients information will be printed and reviewed. Clinic will call patient with appointment information. assistant sales manager also had an outpatient order for a halter monitor that telephonic case manager faxed to [facility], who will call patient with appointment information.
== END 2021-11-09 20:25 | disposition home or self-care (01) ==
PROVIDERS: Emergency Provider Nurse Practitioner Family
DX: O99.891 Other specified diseases and conditions complicating pregnancy (principal); R00.0 Tachycardia, unspecified; Z3A.00 Weeks of gestation of pregnancy not specified
CPT/HCPCS: 80053; 81003; 84443; 84484; 84703; 85025; 93005; 96374; 96375; 99284; J2060; J2405; J7040

== ENCOUNTER 2022-03-26 13:44 | Outpatient (CLI) | payer BC, SELFPAY ==
--- NOTE | 2022-03-26 14:30 | USCV_ITS ---
Mora Whiting Age: 21 Gender: F : 2000 Exam Date: 03/26/2022 14:35 Ordering Phys: Juancho Kwon M.D ([email or web address]) Technologist: Megha Zamudio Exam Location: [facility] Indication: tachycardia, CP BP: 99 / 70 HR: 76 Rhythm: Sinus Technical Quality: Good MEASUREMENTS (Male / Female) Normal Values 2D ECHO LV Diastolic Diameter PLAX 4.5 cm 4.2 - 5.9 / 3.9 - 5.3 cm LV Systolic Diameter PLAX 3.2 cm IVS Diastolic Thickness 0.6 cm 0.6 - 1.0 / 0.6 - 0.9 cm IVS Systolic Thickness 1.0 cm LVPW Diastolic Thickness 0.6 cm 0.6 - 1.0 / 0.6 - 0.9 cm LVPW Systolic Thickness 1.0 cm LVOT Diameter 2.0 cm LV Ejection Fraction 2D Teich 56.8 % LV Ejection Fraction MOD 2C 77.6 % LV Ejection Fraction 2C AL 78.5 % LA Diameter 2.4 cm LA Width 3.2 cm LA Height 3.8 cm RA Width 2.3 cm RA Height 3.7 cm Aorta at Sinotubular Diameter 2.2 cm IVC Diameter 1.0 cm M-MODE MV E Point Septal Separation 0.4 cm DOPPLER AV Peak Velocity 146.0 cm/s LVOT Peak Velocity 101.0 cm/s AV Area Cont Eq vti 2.4 cm squared AV Area Cont Eq pk 2.3 cm squared MV Peak Velocity 100.0 cm/s MV Area PHT 5.0 cm squared Mitral E to A Ratio 1.1 MV E' Velocity 61.0 cm/s Mitral E to MV E' Ratio 9.0 Mitral E to LV E' Lateral Ratio 8.1 Mitral E to LV E' Septal Ratio 10.0 PV Peak Velocity 100.0 cm/s RV Acceleration Time 0.2 s RV Ejection Time 0.3 s RV AcT/ET 0.6 FINDINGS Left Ventricle Left ventricle is normal in size. LV systolic function is normal with EF of 60 to 65%. No regional wall motion abnormalities are seen. Diastolic function is normal Right Ventricle Normal in size and function Right Atrium Normal in size Left Atrium Normal in size Mitral Valve Structurally normal mitral valve. No significant stenosis or regurgitation. Aortic Valve Structurally normal aortic valve. Significant stenosis or regurgitation. Tricuspid Valve Grossly normal Pulmonic Valve Not well visualized Pericardium Normal Aorta Normal in size IVC CONCLUSIONS LV systolic function is normal with EF of 60 to 65%. Diastolic function is normal. No significant valvular heart disease No comparison studies are available Juancho Kwon MD (Electronically Signed) Final Date: 01 April 2022 11:45 S
== END 2022-03-26 13:45 | disposition home or self-care (01) ==
LOC: RAD 13:45
PROVIDERS: PCP Nurse Practitioner Family; Visit Provider Internal Medicine
DX: R07.9 Chest pain, unspecified (principal); R00.0 Tachycardia, unspecified
CPT/HCPCS: 93306

== ENCOUNTER 2022-06-30 17:47 | Emergency (ER) | payer BC, SELFPAY ==
[2022-06-30 17:49] VITALS: BP 118/74; PULSE 102; RESP 17; TEMP 36.2; O2SAT 99; BMI 23.9
--- NOTE | 2022-06-30 17:51 | XRR_ITS ---
PROCEDURE INFORMATION: Exam: XR Chest Exam date and time: 06/30/2022 6:04 PM Age: 22 years old Clinical indication: Shortness of breath; Additional info: SOB TECHNIQUE: Imaging protocol: Radiologic exam of the chest. Views: 1 view. COMPARISON: No relevant prior studies available. FINDINGS: Lungs: Unremarkable. No consolidation. Pleural spaces: Unremarkable. No pleural effusion. No pneumothorax. Heart/Mediastinum: Unremarkable. No cardiomegaly. Bones/joints: Unremarkable. XR/XR chest 1V portable [id number] IMPRESSION: No acute findings.
[2022-06-30 18:08] VITALS: BP 116/77; PULSE 97; RESP 16; O2SAT 97
--- NOTE | 2022-06-30 18:17 | ECG_ITS ---
[facility] Test Date: 2022-06-30 Pat Name: Mora Whiting Department: Room: Gender: Female Rn Critical Care: : 2000 Requested By: Celestine Leger Order Number: [id number] Sienna MD: Den Conway M.D. Measurements Intervals [place] Rate: 76 P: 4 IA: 124 QRS: 41 QRSD: 76 T: 6 QT: 368 QTc: 416 Interpretive Statements SINUS RHYTHM WITH SINUS ARRHYTHMIA Compared to ECG 11/09/2021 18:52:16 Sinus tachycardia no longer present Short IA interval no longer present T-wave abnormality no longer present Electronically Signed On 07-01-2022 20:00:41 LAW OFFICE ASSISTANT by Den Conway M.D. [id number]
--- NOTE | 2022-06-30 18:21 | W.ED.GENADLT ---
Documented by User: UTE Diaz 06/30/22 21:13 HPI - General Adult General: Chief complaint: Vaginal Bleeding Stated complaint: SOB Time Seen by Provider: 06/30/22 18:01 History of Present Illness: Patient is a 21-year-old female that is 5 days status post vaginal delivery. Other than tachycardia, was without complication as was the delivery. Patient is a G1, . She delivered vaginally at full-term. Did require an episiotomy. Patient reports today she feels she is bleeding more but cannot quantify how much more or how frequently. She denies any abdominal pain. We will have the occasional cramping. Patient reports it is made her anxious. She is mildly tachycardic at 110. Denies chest pain but does feel short of breath. Associated symptoms: Deny chest pain, confusion, dyspnea, headache(s), malaise, nausea, rash, palpitations or vomiting Review of Systems General: Reports: 10 or more systems reviewed and unremarkable except in HPI and below Const: Denies: fever(s), chills, change in appetite, change in weight, fatigue or malaise Eyes: Denies: change in vision, eye discomfort, eye discharge or eye redness ENMT: Denies: throat pain, enlarged tonsils, odynophagia, hoarseness, ear or mastoid pain, ear discharge, change in hearing, tinnitus, nasal discharge, nasal congestion, post nasal drip or sinus pain Card: Denies: chest pain, palpitations, irregular heart rhythm, edema, dyspnea on exertion, orthopnea or leg pain with exertion Resp: Denies: dyspnea, productive cough, non-productive cough, wheezing, stridor or chest congestion GI: Denies: abdominal pain, nausea, vomiting, dysphagia, diarrhea, constipation, bloating, GI cramping or hematochezia : Denies: flank pain, difficulty voiding, dysuria, urinary frequency, urinary urgency, urinary hesitancy, oliguria or hematuria Musc: Denies: neck pain, back pain, extremity pain, joint pain, joint swelling, joint redness, joint warmth or muscle weakness Skin/Breast: Denies: rash, pruritus, erythema, photosensitivity or new lesions Neuro: Denies: headache(s), numbness in extremities, weakness in extremities, sensory changes, lack of coordination, difficulty walking, frequent falls, dizziness, confusion, Slurred speech present, difficulty communicating thoughts, seizure-like activity or involuntary movements Endo: Denies: polyuria, polydipsia or tired all the time Joshua/Lymph: Denies: easy bruising or easy bleeding PFSH ED PFSH: Medical History of unknown anatomic location Family History Mother Tachycardia Grandmother Heart attack Social History Smoking and tobacco status: former smoker (vaped) Alcohol intake: never Female Reproductive History: Date of last menstrual period: 09/29/21 Physical Exam Narrative: EXAM NARRATIVE: No acute distress Alert and oriented x3 Afebrile and vital signs stable. Patient is mildly tachycardic at 110 Symmetrical face and facial movements Extraocular movements intact PERRLA 3 mm Nares patent Hearing grossly intact bilateral Respiratory henriquez: No acute distress Nonlabored breathing-no accessory muscle use, no stridor, no wheezing, no retractions Breath sounds clear to auscultation Heart tones normal without additional beats or rubs 2+ pulses upper and lower extremities Mildly tachycardic with a regular rhythm Denies abdominal pain Abdomen is soft and nontender Denies dysuria, denies any urinary symptoms Cervical spine and back nontender. Vaginal exam: Normal external exam. Edema present with episiotomy repair No bleeding from episiotomy site Blood in vaginal canal Course Vital Signs: Vital signs: Vital Signs Temperature 97.2 F L 06/30/22 17:49 Pulse Rate 68 06/30/22 21:32 Respiratory Rate 21 H 06/30/22 21:32 Blood Pressure 111/62 06/30/22 21:32 Pulse Oximetry 96 06/30/22 21:32 Oxygen Delivery Me thod 06/30/22 21:32 MDM - General Adult Medical Decision Making Patient is a 22-year-old female that is G1, Presents for vaginal bleeding, anxious feeling shortness of breath and tachycardia. Differential diagnosis include anticipated vaginal bleeding and anxiety, vaginal hemorrhage, pulmonary embolism. Low likelihood of a pulmonary embolism. Wells criteria: Has a score of 3 points if you consider vaginal delivery in the same category as surgery. This would make her moderate risk. In the emergency department she was placed on cardiac tech. I obtained an EKG, CBC, CMP, D-dimer, PT/INR. IV was started and 1 L fluid given. Naproxen 500 mg p.o. given EKG completed at 1853. Reveals sinus rhythm with sinus arrhythmia. 76 beats a minute and a QTC is 399. No abnormal T wave inversion, ectopy, ST elevation. CBC negative for anemia. Hemoglobin is 12.3 hematocrit 38.4. No significant leukocytosis. Chemistry panel reveals a potassium of 3.3 but otherwise unremarkable. D-dimer is 1.09. CTA ordered after discussion with the patient and her spouse. CT angio completed and reveals no pulmonary embolism but does reveal a small pericardial effusion. Discussed findings with patient and spouse. 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 Patient is going to follow-up with cardiology on Saturday. In addition to the above patient did tell me at the time of final discussion that she was diagnosed this week with mastitis. She is already on Augmentin. Continue her antibiotics as prescribed I reviewed the case with Dr. Fernandez and he is in agreement. Patient to discharge home and return here for new concerning or worsening symptoms Lab Data 06/30/22 18:38 06/30/22 18:38 Radiology Impressions Chest X-Ray 06/30/22 17:51 IMPRESSION: No acute findings. Chest CTA 06/30/22 19:32 IMPRESSION: Small volume pericardial effusion. Otherwise, no acute findings. Laboratory Results WBC 11.5 10^3/uL (4.0-10.0) H 06/30/22 18:38 RBC 4.00 10^6/uL (4.1-5.3) L 06/30/22 18:38 Hgb 12.3 g/dL (11.5-15.3) 06/30/22 18:38 Hct 38.4 % (37.0-47.0) 06/30/22 18:38 MCV 96.0 fl (81-99) 06/30/22 18:38 MCH 30.8 pg (28.0-34.0) 06/30/22 18:38 MCHC 32.0 g/dL (30.0-36.0) 06/30/22 18:38 RDW 13.7 % (12.1-15.1) 06/30/22 18:38 Plt Count 295 10^3/cmm (130-400) 06/30/22 18:38 MPV 10.7 fL (7.4-10.4) H 06/30/22 18:38 Neut % (Auto) 79.1 % 06/30/22 18:38 Lymph % (Auto) 14.1 % 06/30/22 18:38 [place] % (Auto) 5.1 % 06/30/22 18:38 Eos % (Auto) 1.0 % 06/30/22 18:38 Baso % (Auto) 0.3 % 06/30/22 18:38 Neut # (Auto) 9.05 10^3/uL (1.8-7.7) H 06/30/22 18:38 Lymph # (Auto) 1.6 10^3/uL (0.8-4.8) 06/30/22 18:38 [place] # (Auto) 0.6 10^3/uL (0.2-0.9) 06/30/22 18:38 Eos # (Auto) 0.1 10^3/uL (0.0-0.8) 06/30/22 18:38 Baso # (Auto) 0.0 10^3/uL (0.0-0.1) 06/30/22 18:38 Nucleated RBC % (auto) 0 % 06/30/22 18: Nucleated RBCs # 0.0 /100WBC 06/30/22 18:38 PT 13.60 SECONDS (12.1-14.9) 06/30/22 18:38 INR 1.01 (0.8-1.2) 06/30/22 18:38 D-Dimer 1.08 ug/mIFEU (0-0.59) H 06/30/22 18:38 Sodium 139 mmol/L (136-145) 06/30/22 18:38 Potassium 3.3 mmol/L (3.5-5.1) L 06/30/22 18:38 Chloride 103 mmol/L (98-107) 06/30/22 18:38 Carbon Dioxide 25 mmol/L (22-29) 06/30/22 18:38 Anion Gap 14.3 (5-19) 06/30/22 18:38 BUN 8 mg/dL (6-20) 06/30/22 18:38 Creatinine 0.7 mg/dL (0.5-0.9) 06/30/22 18:38 GFR Calculation 103.7 mL/min (90-130) 06/30/22 18:38 Glucose 91 mg/dL (65-115) 06/30/22 18:38 Calculated Osmolality 286 mOsm/kg (285-295) 06/30/22 18:38 Calcium 9.6 mg/dL (8.5-10.5) 06/30/22 18:38 Total Bilirubin 0.2 mg/dL (0.15-1.2) 06/30/22 18:38 AST 14 U/L (0-32) 06/30/22 18:38 ALT 13 U/L (0-33) 06/30/22 18:38 Alkaline Phosphatase 141 U/L (35-105) H 06/30/22 18:38 Total Protein 7.0 g/dL (6.6-8.7) 06/30/22 18:38 Albumin 3.7 g/dL (3.5-5.2) 06/30/22 18:38 Globulin 3.3 g/dL (1.3-4.6) 06/30/22 18:38 Discharge Plan Discharge Patient Disposition: Home Clinical Impression: Tachycardia, Acute pericardial effusion Condition: Stable Prescriptions: No Action acetaminophen 325 mg capsule 325 mg PO Q4H PRN (Reason: fever or pain) Qty: 60 0RF PNV no.154-iron fumarate-folic 27 mg iron- 1 mg tablet 1 tab PO DAILY 90 Days Qty: 90 3RF metoprolol tartrate 25 mg tablet 12.5 mg PO BID Qty: 30 0RF lorazepam 0.5 mg tablet 0.25 mg PO BID PRN (Reason: anxiety) Qty: 10 0RF Discharge Orders: Discharge ED (Routine); Ordered 06/30/22 Ordered By: Celestine Anglin Referrals: Tabby Stern APN [Primary Care Provider] - Discharge Diet: Advance as tolerated Discharge Activity: Resume usual activity Patient Instructions: Pericardial Effusion (ED), Shortness of Breath (ED) Activity Restrictions/Additional Instructions: As discussed please return to the emergency department for new concerning or worsening symptoms. 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 Call for an appointment Your hemoglobin is stable you have not bled too much. Coding Level of Care Code ED Stamp Analyst for Chg Fwd Medical Decision Making Moderate Complexity Documented by User: Carlos Manuel Talavera DO 07/01/22 07:00 HPI - General Adult General: Chief complaint: Vaginal Bleeding Stated complaint: SOB Time Seen by Provider: 06/30/22 18:01 [facility] ED PFSH: Medical History of unknown anatomic location Family History Mother Tachycardia Grandmother Heart attack Social History Smoking and tobacco status: former smoker (vaped) Alcohol intake: never Course Vital Signs: Vital signs: Vital Signs Temperature 97.2 F L 06/30/22 17:49 Pulse Rate 68 06/30/22 21:32 Respiratory Rate 21 H 06/30/22 21:32 Blood Pressure 111/62 06/30/22 21:32 Pulse Oximetry 96 06/30/22 21:32 Oxygen Delivery Me thod 06/30/22 21:32 MDM - General Adult Medical Decision Making Patient is a 22-year-old female that is G1, Presents for vaginal bleeding, anxious feeling shortness of breath and tachycardia. Differential diagnosis include anticipated vaginal bleeding and anxiety, vaginal hemorrhage, pulmonary embolism. Low likelihood of a pulmonary embolism. Wells criteria: Has a score of 3 points if you consider vaginal delivery in the same category as surgery. This would make her moderate risk. In the emergency department she was placed on cardiac tech. I obtained an EKG, CBC, CMP, D-dimer, PT/INR. IV was started and 1 L fluid given. Naproxen 500 mg p.o. given EKG completed at 1853. Reveals sinus rhythm with sinus arrhythmia. 76 beats a minute and a QTC is 399. No abnormal T wave inversion, ectopy, ST elevation. CBC negative for anemia. Hemoglobin is 12.3 hematocrit 38.4. No significant leukocytosis. Chemistry panel reveals a potassium of 3.3 but otherwise unremarkable. D-dimer is 1.09. CTA ordered after discussion with the patient and her spouse. CT angio completed and reveals no pulmonary embolism but does reveal a small pericardial effusion. Discussed findings with patient and spouse. 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 Patient is going to follow-up with cardiology on Saturday. In addition to the above patient did tell me at the time of final discussion that she was diagnosed this week with mastitis. She is already on Augmentin. Continue her antibiotics as prescribed I reviewed the case with Dr. Fernandez and he is in agreement. Patient to discharge home and return here for new concerning or worsening symptoms Chart reviewed and patient discussed with midlevel. Agree with assessment and plan. Lab Data 06/30/22 18:38 06/30/22 18:38 Radiology Impressions Chest X-Ray 06/30/22 17:51 IMPRESSION: No acute findings. Chest CTA 06/30/22 19:32 IMPRESSION: Small volume pericardial effusion. Otherwise, no acute findings. Laboratory Results WBC 11.5 10^3/uL (4.0-10.0) H 06/30/22 18:38 RBC 4.00 10^6/uL (4.1-5.3) L 06/30/22 18:38 Hgb 12.3 g/dL (11.5-15.3) 06/30/22 18:38 Hct 38.4 % (37.0-47.0) 06/30/22 18:38 MCV 96.0 fl (81-99) 06/30/22 18:38 MCH 30.8 pg (28.0-34.0) 06/30/22 18:38 MCHC 32.0 g/dL (30.0-36.0) 06/30/22 18:38 RDW 13.7 % (12.1-15.1) 06/30/22 18:38 Plt Count 295 10^3/cmm (130-400) 06/30/22 18:38 MPV 10.7 fL (7.4-10.4) H 06/30/22 18:38 Neut % (Auto) 79.1 % 06/30/22 18:38 Lymph % (Auto) 14.1 % 06/30/22 18:38 [place] % (Auto) 5.1 % 06/30/22 18:38 Eos % (Auto) 1.0 % 06/30/22 18:38 Baso % (Auto) 0.3 % 06/30/22 18:38 Neut # (Auto) 9.05 10^3/uL (1.8-7.7) H 06/30/22 18:38 Lymph # (Auto) 1.6 10^3/uL (0.8-4.8) 06/30/22 18:38 [place] # (Auto) 0.6 10^3/uL (0.2-0.9) 06/30/22 18:38 Eos # (Auto) 0.1 10^3/uL (0.0-0.8) 06/30/22 18:38 Baso # (Auto) 0.0 10^3/uL (0.0-0.1) 06/30/22 18:38 Nucleated RBC % (auto) 0 % 06/30/22 18:38 Nucleated RBCs # 0.0 /100WBC 06/30/22 18:38 PT 13.60 SECONDS (12.1-14.9) 06/30/22 18:38 INR 1.01 (0.8-1.2) 06/30/22 18:38 D-Dimer 1.08 ug/mIFEU (0-0.59) H 06/30/22 18:38 Sodium 139 mmol/L (136-145) 06/30/22 18:38 Potassium 3.3 mmol/L (3.5-5.1) L 06/30/22 18:38 Chloride 103 mmol/L (98-107) 06/30/22 18:38 Carbon Dioxide 25 mmol/L (22-29) 06/30/22 18:38 Anion Gap 14.3 (5-19) 06/30/22 18:38 BUN 8 mg/dL (6-20) 06/30/22 18:38 Creatinine 0.7 mg/dL (0.5-0.9) 06/30/22 18:38 GFR Calculation 103.7 mL/min (90-130) 06/30/22 18:38 Glucose 91 mg/dL (65-115) 06/30/22 18:38 Calculated Osmolality 286 mOsm/kg (285-295) 06/30/22 18:38 Calcium 9.6 mg/dL (8.5-10.5) 06/30/22 18:38 Total Bilirubin 0.2 mg/dL (0.15-1.2) 06/30/22 18:38 AST 14 U/L (0-32) 06/30/22 18:38 ALT 13 U/L (0-33) 06/30/22 18:38 Alkaline Phosphatase 141 U/L (35-105) H 06/30/22 18:38 Total Protein 7.0 g/dL (6.6-8.7) 06/30/22 18:38 Albumin 3.7 g/dL (3.5-5.2) 06/30/22 18:38 Globulin 3.3 g/dL (1.3-4.6) 06/30/22 18:38 Discharge Plan Discharge Patient Disposition: Home Clinical Impression: Tachycardia, Acute pericardial effusion Condition: Stable Prescriptions: No Action acetaminophen 325 mg capsule 325 mg PO Q4H PRN (Reason: fever or pain) Qty: 60 0RF PNV no.154-iron fumarate-folic 27 mg iron- 1 mg tablet 1 tab PO DAILY 90 Days Qty: 90 3RF metoprolol tartrate 25 mg tablet 12.5 mg PO BID Qty: 30 0RF lorazepam 0.5 mg tablet 0.25 mg PO BID PRN (Reason: anxiety) Qty: 10 0RF Discharge Orders: Discharge ED (Routine); Ordered 06/30/22 Ordered By: Celestine Anglin Referrals: Tabby Stern APN [Primary Care Provider] - Discharge Diet: Advance as tolerated Discharge Activity: Resume usual activity Patient Instructions: Pericardial Effusion (ED), Shortness of Breath (ED) Activity Restrictions/Additional Instructions: As discussed please return to the emergency department for new concerning or worsening symptoms. 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 Call for an appointment Your hemoglobin is stable you have not bled too much. Coding Level of Care Code ED Stamp Analyst for Raphael Fwginette Medical Decision Making Moderate Complexity
[2022-06-30] MEDS: naproxen 500 mg Tablet PO (18:40)
[2022-06-30] MEDS: sodium chloride 0.9% 1,000 ML 999 ML IV (18:40)
[2022-06-30 18:46] VITALS: BP 116/77; PULSE 98; RESP 16; O2SAT 98
[2022-06-30 19:05] LABS: Basophils % 0.3 %; Eosinophils # 0.1 10^3/uL (0.0-0.8); Hematocrit 38.4 % (37.0-47.0); Hemoglobin 12.3 g/dL (11.5-15.3); Lymphocytes # 1.6 10^3/uL (0.8-4.8); Lymphocytes % 14.1 %; Mean Corpuscular Hemoglobin 30.8 pg (28.0-34.0); Mean Platelet Volume 10.7 fL (7.4-10.4); Monocytes # 0.6 10^3/uL (0.2-0.9); Monocytes % 5.1 %; Neutrophils # 9.05 10^3/uL (1.8-7.7); Neutrophils % 79.1 %; Nucleated Red Blood Cells % 0 %; Platelet Count 295 10^3/cmm (130-400); Red Cell Distribution Width 13.7 % (12.1-15.1); White Blood Count 11.5 10^3/uL (4.0-10.0)
[2022-06-30 19:22] LABS: INR 1.01 (0.8-1.2)
[2022-06-30 19:25] LABS: D Dimer 1.08 ug/mIFEU (0-0.59)
[2022-06-30 19:29] LABS: Alanine Aminotransferase 13 U/L (0-33); Albumin Level 3.7 g/dL (3.5-5.2); Alkaline Phosphatase 141 U/L (35-105); Anion Gap 14.3 (5-19); Aspartate Amino Transferase 14 U/L (0-32); Blood Urea Nitrogen 8 mg/dL (6-20); Calcium 9.6 mg/dL (8.5-10.5); Carbon Dioxide 25 mmol/L (22-29); Chloride 103 mmol/L (98-107); Globulin 3.3 g/dL (1.3-4.6); Glomerular Filtration Rate 103.7 mL/min (90-130); Glucose 91 mg/dL (65-115); Osmolality Calculated 286 mOsm/kg (285-295); Potassium 3.3 mmol/L (3.5-5.1); Sodium 139 mmol/L (136-145); Total Bilirubin 0.2 mg/dL (0.15-1.2)
--- NOTE | 2022-06-30 19:32 | CTR_ITS ---
PROCEDURE INFORMATION: Exam: CTA Chest With Contrast Exam date and time: 06/30/2022 8:19 PM Age: 22 years old Clinical indication: Shortness of breath and other: Tachycardia, elevated d-dimer, post x5 days; Additional info: Tachycardia, SOB, anxious, post TECHNIQUE: Imaging protocol: Computed tomographic angiography of the chest with contrast. 3D rendering (Not supervised by radiologist): MIP and/or 3D reconstructed images were created by the technologist. Radiation optimization: All CT scans at this facility use at least one of these dose optimization techniques: automated exposure control; mA and/or kV adjustment per patient size (includes targeted exams where dose is matched to clinical indication); or iterative reconstruction. Contrast material: OMNI 350; Contrast volume: 100 ml; Contrast route: INTRAVENOUS (IV); COMPARISON: CR (CHEST, ) 06/30/2022 6:04 PM RADIATION DOSE METRICS: Total DLP (mGy-cm): 210.28 FINDINGS: Pulmonary arteries: Normal. No pulmonary emboli. Aorta: Unremarkable. No aortic aneurysm. No aortic dissection. Lungs: Unremarkable. No consolidation. No masses. Pleural spaces: Unremarkable. No pneumothorax. No pleural effusion. Heart: No cardiomegaly. Small volume pericardial effusion. Lymph nodes: Unremarkable. No enlarged lymph nodes. Bones/joints: Unremarkable. No acute fracture. Soft tissues: Unremarkable. CT/CT angio chest PE protcl [id number] IMPRESSION: Small volume pericardial effusion. Otherwise, no acute findings.
[2022-06-30] MEDS: iohexol 350 mg/mL 500 mL Btl (per mL) IV (20:07)
[2022-06-30 20:43] VITALS: BP 137/84; PULSE 79; RESP 22; O2SAT 98
[2022-06-30 21:32] VITALS: BP 111/62; PULSE 68; RESP 21; O2SAT 96
== END 2022-06-30 21:44 | disposition home or self-care (01) ==
PROVIDERS: Emergency Medicine; Emergency Provider Nurse Practitioner; PCP Nurse Practitioner Family
DX: O99.43 Diseases of the circulatory system complicating the puerperium (principal); I30.9 Acute pericarditis, unspecified; Z87.891 Personal history of nicotine dependence
CPT/HCPCS: 36415; 71045; 71275; 80053; 85025; 85378; 85610; 93005; 96360; 99285; J7030; Q9967

== ENCOUNTER 2022-07-25 14:06 | Emergency (ER) | payer BC, SELFPAY ==
[2022-07-25 14:09] VITALS: BP 122/92; PULSE 82; RESP 16; TEMP 36.6; O2SAT 94
--- NOTE | 2022-07-25 15:17 | ED_ITS ---
Documented by User: DARRYL García 07/26/22 07:15 HPI - Female Genitourinary General: Chief complaint: Abdominal Pain Stated complaint: right flank pain Time Seen by Provider: 07/25/22 14:44 History of Present Illness: Patient is a 22-year-old female comes to the ED with UTI symptoms. Patient says a little over a week ago she started developing symptoms of dysuria. She went and saw her PCP and they put her on Augmentin. She has been taking Augmentin for almost a week now and symptoms have not improved. She still having dysuria. Yesterday she started developing right lower back pain that radiates into the right lower quadrant of abdomen. He ra nelia the pain a 9 out of 10. Denies any fever, nausea/vomiting. Associated symptoms: Deny abdominal pain, headache(s) or nausea Date of Last Menstrual Period: 09/29/21 Review of Systems Const: Denies: fever(s), chills or fatigue Eyes: Denies: change in vision or eye discomfort ENMT: Denies: throat pain, odynophagia, nasal discharge or nasal congestion Card: Denies: chest pain, palpitations, edema, swelling of feet/ankles, dyspnea on exertion or orthopnea Resp: Denies: dyspnea, productive cough or non-productive cough GI: Denies: abdominal pain, nausea, vomiting, diarrhea, constipation or hematochezia : Reports: flank pain and dysuria; Denies: hematuria Musc: Denies: neck pain, back pain or extremity swelling Skin/Breast: Denies: rash or new lesions Neuro: Denies: headache(s), numbness in extremities or weakness in extremities PFSH ED 2 PFSH: Medical History of unknown anatomic location Family History Mother Tachycardia Grandmother Heart attack Social History Smoking and tobacco status: former smoker (vaped) Alcohol intake: never Female Reproductive History: Date of last menstrual period: 09/29/21 Physical Exam Const: COMMON NORMALS: patient oriented x3 and alert GENERAL APPEARANCE: cooperative and comfortable HENMT: COMMON NORMALS: normocephalic HEAD & SCALP: normocephalic MOUTH: Normal oral and palatal mucosa present THROAT: posterior oropharynx normal and uvula midline Neck/C-Spine: COMMON NORMALS: supple GENERAL: Yes normal visual inspection Resp: COMMON NORMALS: normal respiratory effort, No retractions, No use of accessory muscles and clear to auscultation bilaterally AUSCULTATION: clear to auscultation bilaterally Cardio: COMMON NORMALS: regular rate, regular rhythm, S1 normal heart sound present, S2 normal heart sound present, No gallops present (Cardio), No clicks present (Cardio), No murmurs present (Cardio) and Peripheral pulses 2+ throughout RATE: regular rate RHYTHM: regular rhythm HEART SOUNDS: S1 normal heart sound present and S2 normal heart sound present PERIPHERAL PULSES: Peripheral pulses 2+ throughout GI: COMMON NORMALS: Normal to inspection, nondistended, normoactive bowel sounds present, Soft to palpation, non-tender and no masses PALPATION: Yes Soft to palpation : COMMON NORMALS: Yes no CVA tenderness BLADDER/KIDNEY EXAM: Yes no CVA tenderness Back/Pelvis: COMMON NORMALS: no CVA tenderness Extremity: COMMON NORMALS: normal to inspection Neuro: COMMON NORMALS: patient oriented x3 SENSORIUM/ORIENTATION: Yes alert GAIT: Yes Normal gait present Skin: GENERAL SKIN EXAM: dry skin Course Vital Signs: Vital signs: Vital Signs Temperature 97.8 F 07/25/22 14:09 Pulse Rate 88 07/25/22 19:05 Respiratory Rate 16 07/25/22 19:05 Blood Pressure 123/57 07/25/22 19:05 Pulse Oximetry 100 07/25/22 19:05 Oxygen Delivery Me thod 07/25/22 18:14 MDM - Female Lab Data I reviewed the patient's lab results. 07/25/22 15:40 07/25/22 15:40 Radiology Impressions Abdomen/Pelvis CT 07/25/22 16:11 IMPRESSION: 1. Mild to moderate right-sided hydroureteronephrosis and perinephric/periureteral stranding, secondary to 2 adjacent 3 mm distal right ureteral calculi. 2. Additional findings, as above. COMMENTS: Consistent with the [place]'s Incidental Findings Committee white paper (J Am Kamini Radiol 2018): Any incidental renal lesion less than 1 cm or classified as too small to characterize, or any incidental cystic renal lesion characterized as simple-appearing, is likely benign. No follow-up imaging is recommended for these lesions per consensus recommendations based on imaging criteria. Laboratory Results WBC 10.4 10^3/uL (4.0-10.0) H 07/25/22 15:40 RBC 4.69 10^6/uL (4.1-5.3) 07/25/22 15:40 Hgb 14.2 g/dL (11.5-15.3) 07/25/22 15:40 Hct 43.4 % (37.0-47.0) 07/25/22 15:40 MCV 92.5 fl (81-99) 07/25/22 15:40 MCH 30.3 pg (28.0-34.0) 07/25/22 15:40 MCHC 32.7 g/dL (30.0-36.0) 07/25/22 15:40 RDW 11.8 % (12.1-15.1) L 07/25/22 15:40 Plt Count 249 10^3/cmm (130-400) 07/25/22 15:40 MPV 10.8 fL (7.4-10.4) H 07/25/22 15:40 Neut % (Auto) 84.3 % 07/25/22 15:40 Lymph % (Auto) 10.6 % 07/25/22 15:40 Jess[place] % (Auto) 3.9 % 07/25/22 15:40 Eos % (Auto) 0.6 % 07/25/22 15:40 Baso % (Auto) 0.3 % 07/25/22 15:40 Neut # (Auto) 8.79 10^3/uL (1.8-7.7) H 07/25/22 15:40 Lymph # (Auto) 1.1 10^3/uL (0.8-4.8) 07/25/22 15:40 [place] # (Auto) 0.4 10^3/uL (0.2-0.9) 07/25/22 15:40 Eos # (Auto) 0.1 10^3/uL (0.0-0.8) 07/25/22 15:40 Baso # (Auto) 0.0 10^3/uL (0.0-0.1) 07/25/22 15:40 Nucleated RBC % (auto) 0 % 02/01/23 15:40 Nucleated RBCs # 0.0 /100WBC 07/25/22 15:40 Sodium 138 mmol/L (136-145) 07/25/22 15:40 Potassium 3.8 mmol/L (3.5-5.1) 07/25/22 15:40 Chloride 100 mmol/L (98-107) 07/25/22 15:40 Carbon Dioxide 25 mmol/L (22-29) 07/25/22 15:40 Anion Gap 16.8 (5-19) 07/25/22 15:40 BUN 9 mg/dL (6-20) 07/25/22 15:40 Creatinine 0.7 mg/dL (0.5-0.9) 07/25/22 15:40 GFR Calculation 103.7 mL/min (90-130) 07/25/22 15:40 Glucose 89 mg/dL (65-115) 07/25/22 15:40 Calculated Osmolality 284 mOsm/kg (285-295) L 07/25/22 15:40 Calcium 9.8 mg/dL (8.5-10.5) 07/25/22 15:40 Total Bilirubin 0.5 mg/dL (0.15-1.2) 07/25/22 15:40 AST 14 U/L (0-32) 07/25/22 15:40 ALT 7 U/L (0-33) 07/25/22 15:40 Alkaline Phosphatase 82 U/L (35-105) 07/25/22 15:40 Total Protein 7.3 g/dL (6.6-8.7) 07/25/22 15:40 Albumin 4.6 g/dL (3.5-5.2) 07/25/22 15:40 Globulin 2.7 g/dL (1.3-4.6) 07/25/22 15:40 Lipase 14 U/L (13-60) 07/25/22 15:40 HCG, Qual Negative (Negative) 07/25/22 15:40 Urine Color Yellow (Yellow) 07/25/22 18:25 Urine Appearance Clear (CLEAR) 07/25/22 18:25 Urine pH 5 (5-7) 07/25/22 18:25 Ur Specific [place] 1.010 (1.005-1.030) 07/25/22 18:25 Urine Protein Neg (Negative) 07/25/22 18:25 Urine Glucose (UA) Norm (Normal) 07/25/22 18:25 Urine Ketones 2+ (Negative) H 07/25/22 18:25 Urine Blood 2+ (Negative) H 07/25/22 18:25 Urine Nitrate Negative (Negative) 07/25/22 18:25 Urine Bilirubin Neg (Negative) 07/25/22 18:25 Urine Urobilinogen Norm mg/dL (Negative) 07/25/22 18:25 Ur Leukocyte Esterase Trace (Negative) H 07/25/22 18:25 Ur Microscopic Indic Cancelled 07/25/22 18:25 Urine RBC 0-4 /hpf (0-2) H 07/25/22 18:25 Urine WBC 0-4 /hpf (0-5) H 07/25/22 18:25 Ur Squamous Epith Cells 0-4 /hpf (0-5) H 07/25/22 18:25 Amorphous Sediment Not Reportable 07/25/22 18:25 Urine Bacteria Trace /hpf (NONE) 07/25/22 18:25 Urine Mucus 1+ /hpf 07/25/22 18:25 Discharge Plan Discharge Patient Disposition: Home Clinical Impression: Calculus of distal right ureter Condition: Stable Prescriptions: New hydrocodone-acetaminophen 5-325 mg tablet 1 tab PO Q6H PRN (Reason: pain) Qty: 14 0RF Flomax 0.4 mg capsule 0.4 mg PO DAILY Qty: 10 0RF ondansetron 4 mg tablet,disintegrating 4 mg PO Q8H PRN (Reason: nausea and vomiting) Qty: 14 0RF Continued amoxicillin-pot clavulanate 875-125 mg tablet 1 tab PO Q12H No Action acetaminophen 325 mg capsule 325 mg PO Q4H PRN (Reason: fever or pain) Qty: 60 0RF PNV no.154-iron fumarate-folic 27 mg iron- 1 mg tablet 1 tab PO DAILY 90 Days Qty: 90 3RF Probiotic 5 billion cell Capsule, Sprinkle 1 cap PO DAILY Discharge Orders: Discharge ED (Routine); Ordered 07/25/22 Ordered By: Nohemy Miranda Referrals: Stern,Tabby, HARNESS TIER [Primary Care Provider] - Patient Instructions: Ureteral Stones (ED), Opioid Safety, Pain Management Activity Restrictions/Additional Instructions: As we discussed continue your antibiotics. Begin straining your urine and bring any stones with you to your follow-up urology appointment. As we discussed you need to return to the emergency department for the onset of any fevers of 100.4 or greater, vomiting, inability to hold down your antibiotics, worsening or uncontrollable pain, or any other concerns you may have. I hope you begin to feel better soon. Sign Out Sign Out Data: Patient Sign Out occurred on 07/25/22 at 17:10. Patient's care was discussed, and care was transferred from to DARRYL Acosta. Coding Level of Care Code ED Cardiovascular Technologist for Chg Fwd Exam Comprehensive Documented by User: DARRYL Acosta 07/25/22 20:13 HPI - Female Genitourinary General: Chief complaint: Abdominal Pain Stated complaint: right flank pain Time Seen by Provider: 07/25/22 14:44 [facility] ED PFSH: Medical History of unknown anatomic location Family History Mother Tachycardia Grandmother Heart attack Social History Smoking and tobacco status: former smoker (vaped) Alcohol intake: never Course Vital Signs: Vital signs: Vital Signs Temperature 97.8 F 07/25/22 14:09 Pulse Rate 88 07/25/22 19:05 Respiratory Rate 16 07/25/22 19:05 Blood Pressure 123/57 07/25/22 19:05 Pulse Oximetry 100 07/25/22 19:05 Oxygen Delivery Me thod 07/25/22 18:14 MDM - Female Medical Decision Making Patient is a 22-year-old female here for right-sided flank pain. She is reportedly diagnosed with a UTI last week. Unfortunately urine analysis/culture results are unavailable. She has been on Augmentin. CT scan here shows to 3 mm distal ureter stones. Patient has not been running fevers. No vomiting. Her vital signs are completely normal. WBC is 10.4. Her initial UA was grossly contaminated with 15-25 epithelial cells. Repeat urinalysis was obtained and is not overly suspicious for infection at this time. We will go ahead and culture f or confirmation. Case discussed with Dr. De Leon who felt patient could safely be discharged home with close urology follow-up. Case management referral has been placed for this. We will have her continue her Augmentin. Very strict return to ED precautions were given to which patient voiced understanding. Lab Data 07/25/22 15:40 07/25/22 15:40 Radiology Impressions Abdomen/Pelvis CT 07/25/22 16:11 IMPRESSION: 1. Mild to moderate right-sided hydroureteronephrosis and perinephric/periureteral stranding, secondary to 2 adjacent 3 mm distal right ureteral calculi. 2. Additional findings, as above. COMMENTS: Consistent with the [place] [employer]'s Incidental Findings Committee white paper (J Am Kamini Radiol 2018): Any incidental renal lesion less than 1 cm or classified as too small to characterize, or any incidental cystic renal lesion characterized as simple-appearing, is likely benign. No follow-up imaging is recommended for these lesions per consensus recommendations based on imaging criteria. Laboratory Results WBC 10.4 10^3/uL (4.0-10.0) H 07/25/22 15:40 RBC 4.69 10^6/uL (4.1-5.3) 07/25/22 15:40 Hgb 14.2 g/dL (11.5-15.3) 07/25/22 15:40 Hct 43.4 % (37.0-47.0) 07/25/22 15:40 MCV 92.5 fl (81-99) 07/25/22 15:40 MCH 30.3 pg (28.0-34.0) 07/25/22 15:40 MCHC 32.7 g/dL (30.0-36.0) 07/25/22 15:40 RDW 11.8 % (12.1-15.1) L 07/25/22 15:40 Plt Count 249 10^3/cmm (130-400) 07/25/22 15:40 MPV 10.8 fL (7.4-10.4) H 07/25/22 15:40 Neut % (Auto) 84.3 % 07/25/22 15:40 Lymph % (Auto) 10.6 % 07/25/22 15:40 Jess[place] % (Auto) 3.9 % 07/25/22 15:40 Eos % (Auto) 0.6 % 07/25/22 15:40 Baso % (Auto) 0.3 % 07/25/22 15:40 Neut # (Auto) 8.79 10^3/uL (1.8-7.7) H 07/25/22 15:40 Lymph # (Auto) 1.1 10^3/uL (0.8-4.8) 07/25/22 15:40 Jess[place] # (Auto) 0.4 10^3/uL (0.2-0.9) 07/25/22 15:40 Eos # (Auto) 0.1 10^3/uL (0.0-0.8) 07/25/22 15:40 Baso # (Auto) 0.0 10^3/uL (0.0-0.1) 07/25/22 15:40 Nucleated RBC % (auto) 0 % 07/25/22 15:40 Nucleated RBCs # 0.0 /100WBC 07/25/22 15:40 Sodium 138 mmol/L (136-145) 07/25/22 15:40 Potassium 3.8 mmol/L (3.5-5.1) 07/25/22 15:40 Chloride 100 mmol/L (98-107) 07/25/22 15:40 Carbon Dioxide 25 mmol/L (22-29) 07/25/22 15:40 Anion Gap 16.8 (5-19) 07/25/22 15:40 BUN 9 mg/dL (6-20) 07/25/22 15:40 Creatinine 0.7 mg/dL (0.5-0.9) 07/25/22 15:40 GFR Calculation 103.7 mL/min (90-130) 07/25/22 15:40 Glucose 89 mg/dL (65-115) 07/25/22 15:40 Calculated Osmolality 284 mOsm/kg (285-295) L 07/25/22 15:40 Calcium 9.8 mg/dL (8.5-10.5) 07/25/22 15:40 Total Bilirubin 0.5 mg/dL (0.15-1.2) 07/25/22 15:40 AST 14 U/L (0-32) 07/25/22 15:40 ALT 7 U/L (0-33) 07/25/22 15:40 Alkaline Phosphatase 82 U/L (35-105) 07/25/22 15:40 Total Protein 7.3 g/dL (6.6-8.7) 07/25/22 15:40 Albumin 4.6 g/dL (3.5-5.2) 07/25/22 15:40 Globulin 2.7 g/dL (1.3-4.6) 07/25/22 15:40 Lipase 14 U/L (13-60) 07/25/22 15:40 HCG, Qual Negative (Negative) 07/25/22 15:40 Urine Color Yellow (Yellow) 07/25/22 18:25 Urine Appearance Clear (CLEAR) 07/25/22 18:25 Urine pH 5 (5-7) 07/25/22 18:25 Ur Specific [place] 1.010 (1.005-1.030) 07/25/22 18:25 Urine Protein Neg (Negative) 07/25/22 18:25 Urine Glucose (UA) Norm (Normal) 07/25/22 18:25 Urine Ketones 2+ (Negative) H 07/25/22 18:25 Urine Blood 2+ (Negative) H 07/25/22 18:25 Urine Nitrate Negative (Negative) 07/25/22 18:25 Urine Bilirubin Neg (Negative) 07/25/22 18:25 Urine Urobilinogen Norm mg/dL (Negative) 07/25/22 18:25 Ur Leukocyte Esterase Trace (Negative) H 07/25/22 18:25 Ur Microscopic Indic Cancelled 07/25/22 18:25 Urine RBC 0-4 /hpf (0-2) H 07/25/22 18:25 Urine WBC 0-4 /hpf (0-5) H 07/25/22 18:25 Ur Squamous Epith Cells 0-4 /hpf (0-5) H 07/25/22 18:25 Amorphous Sediment Not Reportable 07/25/22 18:25 Urine Bacteria Trace /hpf (NONE) 07/25/22 18:25 Urine Mucus 1+ /hpf 07/25/22 18:25 Discharge Plan Discharge Patient Disposition: Home Clinical Impression: Calculus of distal right ureter Condition: Stable Prescriptions: New hydrocodone-acetaminophen 5-325 mg tablet 1 tab PO Q6H PRN (Reason: pain) Qty: 14 0RF Flomax 0.4 mg capsule 0.4 mg PO DAILY Qty: 10 0RF ondansetron 4 mg tablet,disintegrating 4 mg PO Q8H PRN (Reason: nausea and vomiting) Qty: 14 0RF Continued amoxicillin-pot clavulanate 875-125 mg tablet 1 tab PO Q12H No Action acetaminophen 325 mg capsule 325 mg PO Q4H PRN (Reason: fever or pain) Qty: 60 0RF PNV no.154-iron fumarate-folic 27 mg iron- 1 mg tablet 1 tab PO DAILY 90 Days Qty: 90 3RF Probiotic 5 billion cell Capsule, Sprinkle 1 cap PO DAILY Discharge Orders: Discharge ED (Routine); Ordered 07/25/22 Ordered By: Nohemy Miranda Referrals: Tabby Stern APN [Primary Care Provider] - Patient Instructions: Ureteral Stones (ED), Opioid Safety, Pain Management Activity Restrictions/Additional Instructions: As we discussed continue your antibiotics. Begin straining your urine and bring any stones with you to your follow-up urology appointment. As we discussed you need to return to the emergency department for the onset of any fevers of 100.4 or greater, vomiting, inability to hold down your antibiotics, worsening or uncontrollable pain, or any other concerns you may have. I hope you begin to feel better soon. Sign Out Sign Out Data: Patient Sign Out occurred on 07/25/22 at 17:10. Patient's care was discussed, and care was transferred from to DARRYL Acosta. Coding Level of Care Code ED Cardiovascular Technologist for Raphael Fwginette Exam Comprehensive
[2022-07-25] MEDS: HYDROcodone-acetaminophen 5-325 mg Tablet 1 TAB PO (15:24)
[2022-07-25 15:26] VITALS: BP 112/70; PULSE 63; O2SAT 100
[2022-07-25 15:47] LABS: Basophils % 0.3 %; Eosinophils # 0.1 10^3/uL (0.0-0.8); Eosinophils % 0.6 %; Hematocrit 43.4 % (37.0-47.0); Hemoglobin 14.2 g/dL (11.5-15.3); Lymphocytes # 1.1 10^3/uL (0.8-4.8); Lymphocytes % 10.6 %; Mean Corpuscular HGB Conc 32.7 g/dL (30.0-36.0); Mean Corpuscular Hemoglobin 30.3 pg (28.0-34.0); Mean Corpuscular Volume 92.5 fl (81-99); Mean Platelet Volume 10.8 fL (7.4-10.4); Monocytes # 0.4 10^3/uL (0.2-0.9); Monocytes % 3.9 %; Neutrophils # 8.79 10^3/uL (1.8-7.7); Neutrophils % 84.3 %; Nucleated Red Blood Cells % 0 %; Platelet Count 249 10^3/cmm (130-400); Red Blood Count 4.69 10^6/uL (4.1-5.3); Red Cell Distribution Width 11.8 % (12.1-15.1); White Blood Count 10.4 10^3/uL (4.0-10.0)
[2022-07-25 15:59] LABS: Add Urine Culture? No; Add Urine Microscopic? YES; Bacteria Urine TRACE /hpf; Bilirubin Urine Neg (Negative); Blood Urine 2+ (Negative); Glucose Urine UA Norm (Normal); Ketones Urine 2+ (Negative); Leukocyte Esterase Urine Trace (Negative); Nitrate Urine Negative (Negative); Protein Urine Neg (Negative); RBC Urine 0-4 /hpf (0-2); Specific Gravity, Urine 1.015 (1.005-1.030); Squamous Epithelial Cell Urine 15-25 /hpf (0-5); Urine Appearance Hazy (CLEAR); Urine Color Yellow (Yellow); Urobilinogen Urine Neg (Negative); WBC Urine 0-4 /hpf (0-5); pH Urine 5 (5-7)
[2022-07-25 15:59] LABS: HCG, Serum Qual Negative (Negative)
[2022-07-25 16:06] LABS: Alanine Aminotransferase 7 U/L (0-33); Albumin Level 4.6 g/dL (3.5-5.2); Alkaline Phosphatase 82 U/L (35-105); Anion Gap 16.8 (5-19); Aspartate Amino Transferase 14 U/L (0-32); Blood Urea Nitrogen 9 mg/dL (6-20); Calcium 9.8 mg/dL (8.5-10.5); Carbon Dioxide 25 mmol/L (22-29); Chloride 100 mmol/L (98-107); Globulin 2.7 g/dL (1.3-4.6); Glomerular Filtration Rate 103.7 mL/min (90-130); Glucose 89 mg/dL (65-115); Lipase 14 U/L (13-60); Osmolality Calculated 284 mOsm/kg (285-295); Potassium 3.8 mmol/L (3.5-5.1); Sodium 138 mmol/L (136-145); Total Bilirubin 0.5 mg/dL (0.15-1.2); Total Protein 7.3 g/dL (6.6-8.7)
--- NOTE | 2022-07-25 16:11 | CTR_ITS ---
PROCEDURE INFORMATION: Exam: CT Abdomen And Pelvis Without Contrast Exam date and time: 07/25/2022 5:42 PM Age: 22 years old Clinical indication: Pain; Other: RT flank; Additional info: Right flank pain TECHNIQUE: Imaging protocol: Computed tomography of the abdomen and pelvis without contrast. Axial, coronal and sagittal reformatted images were created and reviewed. Radiation optimization: All CT scans at this facility use at least one of these dose optimization techniques: automated exposure control; mA and/or kV adjustment per patient size (includes targeted exams where dose is matched to clinical indication); or iterative reconstruction. Other protocol: This patient has received [address] and 0 known cardiac nuclear medicine studies in the 12 months prior to the current study. COMPARISON: US OB transvaginal [facility] 11/06/2021 11:24 AM RADIATION DOSE METRICS: Total DLP (mGy-cm): 344.69 FINDINGS: Liver: Unremarkable. Gallbladder and bile ducts: No radiodense gallstones. No biliary ductal dilatation. Pancreas: Unremarkable. Spleen: Unremarkable. Adrenal glands: Normal. No mass. Kidneys and ureters: 1.9 cm left renal cyst (no follow-up is indicated based on the imaging appearance). Mild to moderate right-sided hydroureteronephrosis and perinephric/periureteral stranding, secondary to 2 adjacent 3 mm distal right ureteral calculi (axial image 174 and coronal image 48). Nonobstructing right renal calculus. Stomach and bowel: No bowel wall thickening. No obstruction. No pneumatosis. Appendix: Normal. Intraperitoneal space: No free fluid. No organized fluid collection. No free air. Vasculature: Unremarkable. No aneurysm. Lymph nodes: No pathologically enlarged lymph nodes. Urinary bladder: Unremarkable as visualized. Reproductive: Unremarkable. Bones/joints: No acute osseous abnormality. Soft tissues: Small, fat containing umbilical hernia. CT/CT kidney stone [id number] IMPRESSION: 1. Mild to moderate right-sided hydroureteronephrosis and perinephric/periureteral stranding, secondary to 2 adjacent 3 mm distal right ureteral calculi. 2. Additional findings, as above. COMMENTS: Consistent with the [place] [employer]'s Incidental Findings Committee white paper (J Am Kamini Radiol 2018): Any incidental renal lesion less than 1 cm or classified as too small to characterize, or any incidental cystic renal lesion characterized as simple-appearing, is likely benign. No follow-up imaging is recommended for these lesions per consensus recommendations based on imaging criteria.
[2022-07-25] MEDS: cefTRIAXone 1,000 MG in water for injection-sterile 2.1 ML 2 MG IM (16:23)
[2022-07-25 17:30] VITALS: BP 111/62; O2SAT 96
[2022-07-25 18:14] VITALS: PULSE 85; O2SAT 96
[2022-07-25 18:59] LABS: Bilirubin Urine Neg (Negative); Blood Urine 2+ (Negative); Glucose Urine UA Norm (Normal); Ketones Urine 2+ (Negative); Leukocyte Esterase Urine Trace (Negative); Nitrate Urine Negative (Negative); Protein Urine Neg (Negative); Urine Appearance Clear (CLEAR); Urine Color Yellow (Yellow); Urobilinogen Urine Norm (Negative); pH Urine 5 (5-7)
[2022-07-25 19:00] LABS: Add Urine Culture? No; Bacteria Urine TRACE /hpf; Mucus Urine 1+ /hpf; RBC Urine 0-4 /hpf (0-2); Squamous Epithelial Cell Urine 0-4 /hpf (0-5); WBC Urine 0-4 /hpf (0-5)
[2022-07-25 19:05] VITALS: BP 123/57; PULSE 88; RESP 16; O2SAT 100
--- NOTE | 2022-07-26 11:11 | DCPLANNER ---
Addendum entered by Marilu Lugo 07/27/22 11:36: manager of business called the [facility] clinic to confirm that facility had received patients information. manager of business was told that clinic did receive patients information. Addendum entered by Marilu Lugo 07/26/22 16:01: manager of business received the following message from the urology clinic regarding follow up appointment: Please send elsewhere. Dr. Sosa is out of town. rehabilitation caseworker called patient and informed patient that Dr. Sosa was out of town and asked patient where she would like the referral sent, patient stated that she would like be referred to [facility]. manager of business sent patients information to [facility]. Original Note: manager of business had message to schedule a follow up appointment for patient with ortho. manager of business sent patients information to the front office staff at ortho. Patients information will be printed and reviewed. Clinic will call patient with appointment information.
== END 2022-07-25 19:27 | disposition home or self-care (01) ==
PROVIDERS: Physician Assistant; Emergency Provider Physician Assistant; PCP Nurse Practitioner Family
DX: N13.2 Hydronephrosis with renal and ureteral calculous obstruction (principal); Z87.891 Personal history of nicotine dependence
CPT/HCPCS: 36415; 74176; 80053; 81001; 83690; 84703; 85025; 87086; 96372; 99285; J0696

== ENCOUNTER 2022-08-29 13:51 | Outpatient (CLI) | payer BC, SELFPAY ==
--- NOTE | 2022-08-29 14:15 | USCV_ITS ---
Mora Whiting Age: 22 Gender: F : 2000 Exam Date: 08/29/2022 14:04 Ordering Phys: Maikel Fong MD ([email or web address]) Technologist: Megha Zamudio Exam Location: [facility] – [place], [place] Indication: BP: 116 / 70 HR: 68 Rhythm: Sinus Technical Quality: Good MEASUREMENTS (Male / Female) Normal Values 2D ECHO LV Diastolic Diameter PLAX 4.4 cm 4.2 - 5.9 / 3.9 - 5.3 cm LV Systolic Diameter PLAX 3.0 cm IVS Diastolic Thickness 0.6 cm 0.6 - 1.0 / 0.6 - 0.9 cm IVS Systolic Thickness 0.7 cm LVPW Diastolic Thickness 0.6 cm 0.6 - 1.0 / 0.6 - 0.9 cm LVPW Systolic Thickness 1.2 cm LVOT Diameter 2.0 cm LV Ejection Fraction 2D Teich 60.7 % LV Ejection Fraction MOD 2C 62.6 % LV Ejection Fraction 2C AL 62.7 % LA Diameter 1.4 cm LA Width 2.5 cm LA Height 3.5 cm RA Width 2.4 cm RA Height 2.6 cm Aorta at Sinotubular Diameter 2.3 cm IVC Diameter 1.8 cm M-MODE MV E Point Septal Separation 0.3 cm DOPPLER AV Peak Velocity 141.0 cm/s LVOT Peak Velocity 102.0 cm/s AV Area Cont Eq vti 2.1 cm squared AV Area Cont Eq pk 2.3 cm squared MV Peak Velocity 105.0 cm/s MV Area PHT 3.1 cm squared Mitral E to A Ratio 1.7 MV E' Velocity 56.0 cm/s Mitral E to MV E' Ratio 5.9 Mitral E to LV E' Lateral Ratio 6.1 Mitral E to LV E' Septal Ratio 5.7 TR Peak Velocity 72.0 cm/s TR Peak Gradient 2.1 mmHg Right Atrial Pressure 5.0 mmHg Pulmonary Artery Systolic Pressu 7.1 mmHg PV Peak Velocity 134.0 cm/s RV Acceleration Time 0.1 s RV Ejection Time 0.3 s RV AcT/ET 0.5 FINDINGS Left Ventricle Normal left ventricular size, systolic function and wall thickness, with no regional wall motion abnormalities. Normal left ventricular wall thickness. Normal diastolic filling pattern. Left ventricular ejection fraction is estimated at 60 %. Right Ventricle The right ventricle is normal in size and function. Right Atrium The right atrium is normal in size. Left Atrium The left atrium is normal in size. Mitral Valve Structurally normal mitral valve without significant stenosis or prolapse. There is no mitral regurgitation. Aortic Valve Structurally normal aortic valve without significant sclerosis or stenosis. There is no aortic regurgitation. Tricuspid Valve Structurally normal tricuspid valve without significant stenosis or regurgitation. Pulmonary artery systolic pressure is normal. Pulmonic Valve Structurally normal pulmonic valve without significant stenosis. There is no pulmonic regurgitation. Pericardium There is a trivial amount of pericardial fluid. Aorta Normal ascending aorta dimension. IVC The inferior vena cava appears normal. CONCLUSIONS Normal transthoracic echocardiogram. No change from the previous study dictated 04/01/2022 Dr. Maikel Fong MD (Electronically Signed) Final Date: 30 August 2022 17:41 S
== END 2022-08-29 13:52 | disposition home or self-care (01) ==
PROVIDERS: PCP Nurse Practitioner Family; Visit Provider Internal Medicine Cardiovascular Disease
DX: I31.39 Other pericardial effusion (noninflammatory) (principal); R00.0 Tachycardia, unspecified
CPT/HCPCS: 93306

== ENCOUNTER → 2024-01-26 12:07 | Outpatient (BNVA) | payer BC, SELFPAY | PROVIDERS: PCP Nurse Practitioner Family; Visit Provider Registered Nurse Neonatal Intensive Care | DX: J02.9 Acute pharyngitis, unspecified (principal) | CPT/HCPCS: 87880 ==

== ENCOUNTER → 2025-06-19 16:15 | Outpatient (BNVA) | payer BC, SELFPAY | PROVIDERS: Visit Provider Emergency Medicine | DX: J06.9 Acute upper respiratory infection, unspecified (principal) | CPT/HCPCS: 87400; 87426 ==